=== PATIENT | female | born 1955 | race Caucasian/White ===

== ENCOUNTER 2020-03-12 13:51 | Inpatient (IN) | payer MEDICARE, BC ==
[~2020-03-12] VITALS: Ht 162.6 cm; Wt 52.2 kg
[2020-03-12] MEDS ORDERED: Omnipaque-300 100ml vial INJ PRN (14:00)
[2020-03-12] MEDS ORDERED: Ketorolac 30mg Inj IV ONE (14:00)
--- NOTE | 2020-03-12 14:00 | NUR ---
Pt.came from home with c/o nausea vomiting abdominal pain since monday, VSS, ambulatory, blood was sent to labs, placed on potline monitor and isolation room
[2020-03-12] MEDS ORDERED: Morphine Sulfate 2mg/ml Inj(IV/IM USE ONLY) IVP ONE ×2 (14:15→17:30)
--- NOTE | 2020-03-12 14:20 | NUR ---
ED Nurse Note: x-ray tech at bedside.
--- NOTE | 2020-03-12 14:35 | NUR ---
ED Nurse Note: urine specimen and rapid covid collected, sent to labs.
[2020-03-12 14:36] VITALS: BP 104/69
[2020-03-12 14:38] LABS: HEMATOCRIT 45.2 % (37.0-47.0); HEMOGLOBIN 14.8 G/DL (12.0-16.0); MEAN CORPUSCULAR VOLUME 88 FL (80-99); PLATELET COUNT 377 K/UL (150-450); RED BLOOD COUNT 5.11 M/UL (4.20-5.40); RED CELL DISTRIBUTION WIDTH 12.4 % (11.6-14.8); WHITE BLOOD COUNT 18.4 K/UL (4.8-10.8)
[2020-03-12 14:39] LABS: APPEARANCE,URINE CLEAR; BILIRUBIN, URINE NEGATIVE (NEGATIVE); GLUCOSE, URINE (UA) 2+ (NEGATIVE); KETONES,URINE 2+ (NEGATIVE); LEUKOCYTE ESTERASE ,URINE 1+ (NEGATIVE); NITRITE,URINE NEGATIVE (NEGATIVE); PH,URINE 8 (4.5-8.0); PROTEIN,URINE 1+ (NEGATIVE); UROBILINOGEN,URINE 1 MG/DL (0.0-1.0)
[2020-03-12 14:52] LABS: INR 1.1 (0.9-1.1)
[2020-03-12 14:53] LABS: COLOR,URINE YELLOW
[2020-03-12 14:56] LABS: ANION GAP 12 mmol/L (5-15); BLOOD UREA NITROGEN 18 mg/dL (7-18); CALCIUM 10.1 MG/DL (8.5-10.1); CARBON DIOXIDE 28 MMOL/L (21-32); CHLORIDE 97 MMOL/L (98-107); CREATININE 1.1 MG/DL (0.55-1.30); POTASSIUM 3.4 MMOL/L (3.5-5.1); SODIUM 137 MMOL/L (136-145)
--- NOTE | 2020-03-12 14:57 | Diagnostic Imaging Report ---
Indication: Chest pain Technique: XRAY Chest 1v Comparison:None Findings: Heart is normal in size. Lungs are free of infiltrates. No pleural fluid. Osseous structures are unremarkable. There are some popcorn-like densities in the lucretia and in the aortopulmonary window. Impression: Possible calcified nodes in the pulmonary lucretia and aortopulmonary window. Otherwise
[2020-03-12] MEDS ORDERED: Piperacillin/Tazobactam 3.375 GM in NS 110 ML IVPB ONE (15:00)
--- NOTE | 2020-03-12 15:04 | NUR ---
ED Nurse Note: Patient taken to CT
--- NOTE | 2020-03-12 15:15 | NUR ---
ED Nurse Note: pt returned from CT on stable condition.
[2020-03-12 15:16] LABS: ALANINE AMINOTRANSFERASE 20 U/L (12-78); ALBUMIN 3.9 G/DL (3.4-5.0); ALBUMIN/GLOBULIN RATIO 0.9 (1.0-2.7); ALKALINE PHOSPHATASE 60 U/L (46-116); ASPARTATE AMINO TRANSFERASE 20 U/L (15-37); BILIRUBIN,TOTAL 1.6 MG/DL (0.2-1.0)
[2020-03-12 15:18] LABS: BILIRUBIN,DIRECT 0.2 MG/DL (0.0-0.3)
--- NOTE | 2020-03-12 15:38 | Diagnostic Imaging Report ---
Indication: Reason For Exam: ABD PAIN Technique: CT scan of the abdomen and pelvis was performed from the diaphragms to the symphysis pubis with intravenous contrast material only per specific request of the ordering physician.. 5 mm sections were generated. Axial, coronal, and sagittal images are presented. Dose: Total Dose Length Product - DLP [address] Dose Index - CTDIvol(s) 6.00 mGy. Automated exposure control was utilized for dose reduction. Comparison: None Findings: Liver is unremarkable. The gallbladder is normal. The spleen is unremarkable. Pancreas is normal. There is a small hiatal hernia. Adrenal glands are normal. The kidneys are unremarkable. There is some calcification of the aorta. Retroperitoneum is free of adenopathy. The colon is mostly collapsed making evaluation of the wall the colon difficult. It does appear somewhat indistinct throughout. The appendix is borderline in size but periappendiceal inflammatory changes are not present. There is some stranding in the retroperitoneum posterior to the colon bilaterally. Fluid-filled loops of mid small bowel are noted with some air-fluid levels. A minimal amount of free pelvic fluid is present. The uterus is mildly enlarged. Multiple masses are noted within the uterus. Calcifications are also noted within uterine body. Ovaries are not enlarged. Bladder is collapsed. Degenerative changes are noted in the spine. There is anterolisthesis, grade 1, of L5 on S1. Impression: Some indistinctness of the colonic wall with some retroperitoneal stranding bilaterally posterior to the colon. Possibility of a colitis cannot be excluded and should be correlated clinically. Hiatal hernia. Uterine fibroids. Minimal fluid in the cul-de-sac. Degenerative change in the spine. Anterolisthesis of L5 on S1, grade 1. Fluid-filled loops of mid small bowel with some air-fluid levels, nonspecific. This does not appear obstructive and could represent enteritis. Again, clinical correlation suggested. The CT scanner at [facility] is accredited by the [employer] and the scans are performed using protocols designed to limit radiation exposure to as low as reasonably achievable to attain images of sufficient resolution adequate for diagnostic evaluation.
--- NOTE | 2020-03-12 16:15 | Emergency Room Report ---
History of Present Illness General Chief Complaint: Abdominal Pain Source: Patient (Duglas Meadows) Present Illness HPI 64-year-old female with no signal past medical history other than hiatal hernia here complaining of sudden onset of right lower quadrant abdominal pain rating a 10 out of 10 x 2 days. Patient was brought in by paramedics as patient reported that she felt really lethargic and had multiple bouts of nonbloody emesis. Denies any fever and chills. Also reports that last night she had diarrhea however denies any blood in her stool. Denies chest pain, shortness of breath, headache and dizziness. Has not taken medication for symptom relief. Has not taken medication for pain. Denies any abdominal surgeries in the past. Patient is guarding her right lower quadrant. Is tender to palpation in the same area. (Duglas Meadows) Allergies: Coded Allergies: No Known Allergies (Unverified , 03/12/20) COVID-19 Screening Contact w/high risk pt: No Experienced COVID-19 symptoms?: No COVID-19 Testing performed AUCTION ASSISTANT: No (Duglas Meadows) Patient History Past Medical History: see triage record Past Surgical History: none Pertinent Family History: none Now: No Immunizations: UTD Reviewed Nursing Documentation: PMH: Agreed; PSxH: Agreed (Duglas Meadows) Nursing Documentation-PMH Past Medical History: No History, Except For Hx Asthma: Yes (Duglas Meadows) Review of Systems All Other Systems: negative except mentioned in HPI (Duglas Meadows) Physical Exam Vital Signs Date Time Temp Pulse Resp B/P (MAP) Pulse Ox O2 Delivery O2 Flow Rate FiO2 03/12/20 13:49 98.2 70 16 104/69 (81) 98 Room Air Sp02 EP Interpretation: reviewed, normal General Appearance: alert, GCS 15, non-toxic, moderate distress Head: normocephalic, atraumatic Eyes: bilateral eye normal inspection, bilateral eye PERRL ENT: hearing grossly normal, normal pharynx, no angioedema, normal voice Neck: full range of motion, supple/symm/no masses Respiratory: chest non-tender, lungs clear, normal breath sounds, no rhonchi, no wheezing, speaking full sentences Cardiovascular #1: regular rate, rhythm, no edema, no murmur Gastrointestinal: normal bowel sounds, non-distended, guarding - RLQ, rebound - RLQ, other - Mcburny's positive Rectal: deferred Genitourinary: no CVA tenderness Musculoskeletal: back normal, no calf tenderness Neurologic: alert, motor strength/tone normal, oriented x3, sensory intact, responsive, speech normal Psychiatric: judgement/insight normal, memory normal, mood/affect normal, no suicidal/homicidal ideation Skin: no rash Lymphatic: no adenopathy (Duglas Meadows) Medical Decision Making PA Attestation All diagnoses and treatment plans were reviewed and discussed with my supervising physician Dr. Swan (Duglas Meadows) Diagnostic Impression: Primary Impression: Appendicitis Additional Impressions: Uterine fibroid Colitis ER Course 64-year-old female with no signal past medical history other than hiatal hernia here complaining of sudden onset of right lower quadrant abdominal pain rating a 10 out of 10 x 2 days. Patient was brought in by paramedics as patient reported that she felt really lethargic and had multiple bouts of nonbloody emesis. Denies any fever and chills. Also reports that last night she had diarrhea however denies any blood in her stool. Denies chest pain, shortness of breath, headache and dizziness. Has not taken medication for symptom relief. Has not taken medication for pain. Denies any abdominal surgeries in the past. Patient is guarding her right lower quadrant. Is tender to palpation in the same area. Ddx considered but are not limited to: appendicitis, cholecystis, gastritis, gastroenteritis, UTI, pyelonephritis, SBO, diverticulitis, influenza with GI manifestation, RI, pancreatitis, colitis Vital signs: are WNL, pt. is afebrile H&PE are most consistent with: Borderline appendicitis, colitis, uterine fibroids ORDERS: abdominal CT, abdominal pain set, EKG, chest x-ray ED INTERVENTIONS: NS bolus, Pepcid, morphine, Toradol,, Zofran, Zosyn pt is covid negative Patient was admitted with diagnosis of borderline appendicitis to Dr. Cooper under supervision of Dr.: Sosa Castorena, general surgeon was consulted pt stable at time of admission (Duglas Meadows) ER Course Please see above note. Patient history obtained by me also and evaluated and examined. I agree with assessment and plan. Contacted admitting physician and Dr. Castorena. (Yuri Swan MD) EKG Diagnostic Results Rate: normal Rhythm: NSR ST Segments: no acute changes Other Impression No acute ST changes (Duglas Meadows) Chest X-Ray Diagnostic Results Chest X-Ray Diagnostic Results : Chest X-Ray Ordered: Yes # of Views/Limited/Complete: 1 View Indication: Other EP Interpretation: Yes PA Xray: Interpretation reviewed, by supervising MD, and agrees with findings. Interpretation: no consolidation, no effusion, no pneumothorax Impression: No acute disease Electronically Signed by: Duglas Ryan PA-C (Duglas Meadows) CT/MRI/US Diagnostic Results CT/MRI/US Diagnostic Results : Imaging Test Ordered: CT abdomen pelvis with contrast Impression Borderline size per appendix, colitis, multiple uterine fibroids (Duglas Meadows) Last Vital Signs Date Time Temp Pulse Resp B/P (MAP) Pulse Ox O2 Delivery O2 Flow Rate FiO2 03/12/20 14:36 98.2 16 104/69 98 Room Air 03/12/20 14:36 70 (Duglas Meadows) Status: improved (Yuri Swan MD) Disposition: ADMITTED INPATIENT Condition: Serious Referrals: NOT CHOSEN IPA/,REFERRING (PCP) Duglas Meadows Mar 12, 2020 16:15 Yuri Swan MD Mar 12, 2020 17:06
[2020-03-12] MEDS ORDERED: SYNTHROID25 MCG ORAL (17:02)
--- NOTE | 2020-03-12 17:55 | NUR ---
NURSE NOTES: Report received from Dorothy LYNN, ER admission to 303-2.
[2020-03-12 17:58] VITALS: BP 110/72
--- NOTE | 2020-03-12 18:00 | NUR ---
ED Nurse Note: pt was transferred to med surg unit in stable condition, under the care of dr. stallworth, report was given to ad LYNN, in med surg unit.
--- NOTE | 2020-03-12 18:01 | NUR ---
ED Nurse Note: report given to SHANE Prieto for continuity of care in med surg unit.
--- NOTE | 2020-03-12 18:07 | Consultation ---
History of Present Illness General Date patient seen: Mar 13, 2020 Chief Complaint: Abdominal Pain Present Illness HPI This is a very pleasant 64-year-old female who presented to [facility] with abdominal pain. Patient with history of groin hernia status post repair 2 years ago open at [facility] that began to note generalized abdominal pain approximately 2 to 3 days ago which then began to localize in the pelvic and lower abdomen states both right and left quadrant right more than left. Intermittent nausea and nonbloody emesis. States she is unable to hold much food down. States she is been having intermittent diarrhea and nonbloody diarrhea for the past 2 days. He has had similar symptoms in the past prior. In ED identified to have leukocytosis Harsh thousand and CT as below. Surgery called to evaluate and assist with care. Patient seen, patient evaluated, chart reviewed. currently pain improved. Allergies: Coded Allergies: No Known Allergies (Unverified , 03/12/20) Medication History Scheduled Levothyroxine Sodium* (Synthroid*), 25 MCG ORAL DAILY, (Reported) Patient History History Provided By: Patient, Medical Record, PMD Healthcare decision maker N Resuscitation status Advanced Directive on File Past Medical/Surgical History Past Medical/Surgical History: (1) Colitis (2) Uterine fibroid (3) Appendicitis (4) Hypothyroidism (5) History of asthma Review of Systems Constitutional: Denies: no symptoms, see HPI, chills, sweats, fever, malaise, weakness, other Eye: Denies: no symptoms, see HPI, eye pain, blurred vision, tearing, double vision, nose pain, nose congestion, acuity changes, discharge, other ENT: Denies: no symptoms, see HPI, ear pain, ear discharge, nose pain, nose congestion, throat pain, throat swelling, mouth pain, hearing loss, nasal discharge, other Respiratory: Denies: no symptoms, see HPI, cough, orthopnea, shortness of breath, stridor, wheezing, MCDOWELL, sputum, other Cardiovascular: Denies: no symptoms, see HPI, chest pain, edema, palpitations, syncope, PND, other Gastrointestinal: Reports: abdominal pain, diarrhea, nausea, vomiting Genitourinary: Denies: no symptoms, see HPI, discharge, dysuria, frequency, hematuria, pain, retention, incontinence, urgency, vag bleed/dc, other Musculoskeletal: Denies: no symptoms, see HPI, back pain, gout, joint pain, joint swelling, muscle pain, muscle stiffness, other Skin: Denies: no symptoms, see HPI, rash, change in color, change in hair/nails , dryness, lesions, other Psychiatric: Denies: no symptoms, see HPI, prior hx, anxiety, depressed feelings, emotional problems, SI, HI, hallucinations, other Neurological: Denies: no symptoms, see HPI, headache, numbness, paresthesia, seizure, tingling, tremors, focal weakness, syncope, dizziness, other Endocrine: Denies: no symptoms, see HPI, excessive sweating, flushing, intolerance to temperature, increased thirst, increased urine, unexplained weight loss, other Hematologic/Lymphatic: Denies: no symptoms, see HPI, anemia, blood clots, easy bleeding, easy bruising, swollen glands, diathesis, other Physical Exam General Appearance: WD/WN, no apparent distress, alert Lines, tubes and drains: peripheral HEENT: normocephalic, atraumatic, anicteric, mucous membranes moist Neck: supple, normal inspection Respiratory/Chest: normal breath sounds, no respiratory distress, no accessory muscle use Cardiovascular/Chest: normal peripheral pulses, normal rate, regular rhythm Abdomen: soft, no organomegaly, no mass, hyperactive bowel sounds, tender Extremities: normal inspection, no calf tenderness, normal capillary refill Skin Exam: warm/dry Neurologic: alert, oriented x 3, responsive Last 24 Hour Vital Signs Date Time Temp Pulse Resp B/P (MAP) Pulse Ox O2 Delivery O2 Flow Rate FiO2 03/12/20 17:58 98.2 59 20 110/72 100 Room Air 03/12/20 14:46 98.2 03/12/20 14:46 98.2 03/12/20 14:45 98.2 03/12/20 14:36 98.2 16 104/69 98 Room Air 03/12/20 14:36 70 16 Room Air 03/12/20 13:49 98.2 70 16 104/69 (81) 98 Room Air Laboratory Tests Test 03/12/20 13:30 03/12/20 14:30 White Blood Count 18.4 K/UL (4.8-10.8) H Red Blood Count 5.11 M/UL (4.20-5.40) Hemoglobin 14.8 G/DL (12.0-16.0) Hematocrit 45.2 % (37.0-47.0) Mean Corpuscular Volume 88 FL (80-99) Mean Corpuscular Hemoglobin 29.0 PG (27.0-31.0) Mean Corpuscular Hemoglobin Concent 32.8 G/DL (32.0-36.0) Red Cell Distribution Width 12.4 % (11.6-14.8) Platelet Count 377 K/UL (150-450) Mean Platelet Volume 5.9 FL (6.5-10.1) L Neutrophils (%) (Auto) % (45.0-75.0) Lymphocytes (%) (Auto) % (20.0-45.0) Monocytes (%) (Auto) % (1.0-10.0) Eosinophils (%) (Auto) % (0.0-3.0) Basophils (%) (Auto) % (0.0-2.0) Differential Total Cells Counted 100 Neutrophils % (Manual) 90 % (45-75) H Lymphocytes % (Manual) 5 % (20-45) L Monocytes % (Manual) 5 % (1-10) Eosinophils % (Manual) 0 % (0-3) Basophils % (Manual) 0 % (0-2) Band Neutrophils 0 % (0-8) Platelet Estimate Adequate Platelet Morphology Normal Red Blood Cell Morphology Normal Prothrombin Time 12.0 SEC (9.30-11.50) H Prothromb Time International Ratio 1.1 (0.9-1.1) Activated Partial Thromboplast Time 32 SEC (23-33) Sodium Level 137 MMOL/L (136-145) Potassium Level 3.4 MMOL/L (3.5-5.1) L Chloride Level 97 MMOL/L (98-107) L Carbon Dioxide Level 28 MMOL/L (21-32) Anion Gap 12 mmol/L (5-15) Blood Urea Nitrogen 18 mg/dL (7-18) Creatinine 1.1 MG/DL (0.55-1.30) Estimat Glomerular Filtration Rate 49.9 mL/min (>60) Glucose Level 135 MG/DL (74-106) H Calcium Level 10.1 MG/DL (8.5-10.1) Total Bilirubin 1.6 MG/DL (0.2-1.0) H Direct Bilirubin 0.2 MG/DL (0.0-0.3) Aspartate Amino Transf (AST/SGOT) 20 U/L (15-37) Alanine Aminotransferase (ALT/SGPT) 20 U/L (12-78) Alkaline Phosphatase 60 U/L (46-116) Troponin I 0.000 ng/mL (0.000-0.056) Pro-B-Type Natriuretic Peptide 1608 pg/mL (0-125) H Total Protein 8.4 G/DL (6.4-8.2) H Albumin 3.9 G/DL (3.4-5.0) Globulin 4.5 g/dL Albumin/Globulin Ratio 0.9 (1.0-2.7) L Lipase 64 U/L (73-393) L Serum Alcohol < 3 mg/dL Urine Color Yellow Urine Appearance Clear Urine pH 8 (4.5-8.0) Urine Specific [place] 1.010 (1.005-1.035) Urine Protein 1+ (NEGATIVE) H Urine Glucose (UA) 2+ (NEGATIVE) H Urine Ketones 2+ (NEGATIVE) H Urine Blood 3+ (NEGATIVE) H Urine Nitrite Negative (NEGATIVE) Urine Bilirubin Negative (NEGATIVE) Urine Urobilinogen 1 MG/DL (0.0-1.0) H Urine Leukocyte Esterase 1+ (NEGATIVE) H Urine RBC 2-4 /HPF (0 - 2) H Urine WBC 2-4 /HPF (0 - 2) Urine Squamous Epithelial Cells Few /LPF (NONE/OCC) Urine Bacteria Few /HPF (NONE) Urine Opiates Screen Negative (NEGATIVE) Urine Barbiturates Screen Negative (NEGATIVE) Phencyclidine (PCP) Screen Negative (NEGATIVE) Urine Amphetamines Screen Negative (NEGATIVE) Urine Benzodiazepines Screen Negative (NEGATIVE) Urine Cocaine Screen Negative (NEGATIVE) Urine Marijuana (THC) Screen Positive (NEGATIVE) H Microbiology Date/Time Source Procedure Growth Status 03/12/20 14:24 Nasopharynx SARS-CoV-2 RdRp Gene Assay - Final Complete Height (Feet): 5 Height (Inches): 4.00 Weight (Pounds): 115 Medications Current Medications Medications (Trade) Dose Ordered Sig/Candie Route PRN Reason Start Time Stop Time Status Last Admin Dose Admin Iohexol (OMNIPAQUE-300 100ml) 100 ml NOW PRN INJ Radiology Procedure 03/12/20 14:00 03/14/20 13:56 Assessment/Plan Problem List: (1) Colitis Assessment & Plan: 64-year-old female with 2 days abdominal pain nausea vomiting diarrhea. CT noted. Appendix identified without any inflammation. Does have colitis. On examination right lower quadrant pelvic and left lower quadrant all tender with right a little bit more pronounced. Likely diagnosis colitis potential appendicitis Okay for clear liquid diet trial Pain control Antibiotics We will follow serial abdominal examinations and recommendations thank you for let me participate in patient's care ICD Codes: K52.9 - Noninfective gastroenteritis and colitis, unspecified SNOMED: 77710720 (2) Uterine fibroid ICD Codes: D25.9 - Leiomyoma of uterus, unspecified SNOMED: 45942262 (3) Appendicitis Assessment & Plan: Liver is unremarkable. The gallbladder is normal. The spleen is unremarkable. Pancreas is normal. There is a small hiatal hernia. Adrenal glands are normal. The kidneys are unremarkable. There is some calcification of the aorta. Retroperitoneum is free of adenopathy. The colon is mostly collapsed making evaluation of the wall the colon difficult. It does appear somewhat indistinct throughout. The appendix is borderline in size but periappendiceal inflammatory changes are not present. There is some stranding in the retroperitoneum posterior to the colon bilaterally. Fluid-filled loops of mid small bowel are noted with some air-fluid levels. A minimal amount of free pelvic fluid is present. The uterus is mildly enlarged. Multiple masses are noted within the uterus. Calcifications are also noted within uterine body. Ovaries are not enlarged. Bladder is collapsed. Degenerative changes are noted in the spine. There is anterolisthesis, grade 1, of L5 on S1. ICD Codes: K37 - Unspecified appendicitis SNOMED: 44030456 Leoncio Castorena Mar 12, 2020 18:07
[2020-03-12 18:15] VITALS: BP 136/74
[2020-03-12] MEDS ORDERED: Mylanta II UD 30ml ORAL PRN (18:15)
[2020-03-12] MEDS ORDERED: Morphine Sulfate 4mg/ml Inj (IV USE ONLY) IVP PRN (18:15)
[2020-03-12] MEDS ORDERED: Morphine Sulfate 2mg/ml Inj(IV/IM USE ONLY) IVP PRN (18:15)
[2020-03-12] MEDS ORDERED: Milk of Magnesia 30ml Ud ORAL PRN (18:15)
[2020-03-12] MEDS ORDERED: LORazepam 1mg tab ORAL PRN (18:15)
--- NOTE | 2020-03-12 18:15 | NUR ---
NURSE NOTES: Patient arrived to 303-2 via gurney on RA, in stable condition at 1815. Patient AOx4 calm, no distress noted. Respirations even/unlabored. Belongings reviewed with patient and research laboratory technician, patient wants to keep hernandez ($182) at bedside in her purse. VSS. No NV at this time. Patient reports pain 8/10, while pressing on her abdomen. ROLANDA, IVF infusing (NS to gravity, will call for pump). Noted generalized scabs to BUE/BLE and back due to past itching, denies itchiness at this time. Oriented patient to room and call light. Bed in lowest position, call light in reach, will continue to monitor.
--- NOTE | 2020-03-12 18:40 | NUR ---
NURSE NOTES: Above ROLANDA IV site, looks swollen and slightly pink. IV flushed, no pain or resistance, however, IV clamped/stopped. Will need restart, will endorse to next shift.
[2020-03-12] MEDS ORDERED: Nitroglycerin Subl 0.4mg tab SL PRN (18:45)
[2020-03-12] MEDS ORDERED: Miralax 17gm pkt ORAL PRN (18:45)
--- NOTE | 2020-03-12 19:42 | NUR ---
HAND-OFF: Report given to Chhaya LYNN, rounds made, patient stable. Addendum: 03/12/20 at 2001 by Desire Marina RN Endorsed IV needs restart.
--- NOTE | 2020-03-12 19:43 | NUR ---
NURSE NOTES: Received report & pt from SHANE Phipps. Pt laying in bed, a&ox4, in room air. No s/s of acute distress & no c/o pain at this time. Pt is NPO & pt aware. IV site intact with IVF running as ordered. Plan of care discussed.
[2020-03-12 20:00] VITALS: BP 109/60
[2020-03-12] MEDS: Heparin 5000 units/ml inj SUBQ SCH (20:35)
[2020-03-13] VITALS: BP 104/58
[2020-03-13 04:00] VITALS: BP 102/61
[2020-03-13] MEDS: Morphine Sulfate 2mg/ml Inj(IV/IM USE ONLY) IVP PRN (05:25)
[2020-03-13 06:17] LABS: BASOPHILS % (AUTO) 0.7 % (0.0-2.0); EOSINOPHILS % (AUTO) 0.2 % (0.0-3.0); HEMATOCRIT 40.4 % (37.0-47.0); HEMOGLOBIN 12.9 G/DL (12.0-16.0); LYMPHOCYTES % (AUTO) 8.7 % (20.0-45.0); MEAN CORPUSCULAR VOLUME 92 FL (80-99); MONOCYTES % (AUTO) 7.4 % (1.0-10.0); PLATELET COUNT 286 K/UL (150-450); RED BLOOD COUNT 4.41 M/UL (4.20-5.40); RED CELL DISTRIBUTION WIDTH 13.2 % (11.6-14.8); WHITE BLOOD COUNT 12.5 K/UL (4.8-10.8)
[2020-03-13 06:39] LABS: INR 1.1 (0.9-1.1)
[2020-03-13 06:43] LABS: ALANINE AMINOTRANSFERASE 16 U/L (12-78); ALBUMIN 3.1 G/DL (3.4-5.0); ALBUMIN/GLOBULIN RATIO 0.8 (1.0-2.7); ALKALINE PHOSPHATASE 56 U/L (46-116); ANION GAP 7 mmol/L (5-15); ASPARTATE AMINO TRANSFERASE 17 U/L (15-37); BLOOD UREA NITROGEN 17 mg/dL (7-18); CALCIUM 9.5 MG/DL (8.5-10.1); CARBON DIOXIDE 28 MMOL/L (21-32); CHLORIDE 103 MMOL/L (98-107); POTASSIUM 3.4 MMOL/L (3.5-5.1); SODIUM 138 MMOL/L (136-145)
--- NOTE | 2020-03-13 06:48 | NUR ---
NURSE NOTES: Left msg to Dr. Cooper re: K level 3.4; Awaiting order. Will endorse to AM shift.
[2020-03-13 07:01] LABS: AMYLASE 38 U/L (25-115)
--- NOTE | 2020-03-13 07:10 | NUR ---
NURSE HAND-OFF: Important Events on Shift: Emesis 100ml clear, greenish Patient Status: stable but still a little nauseous; PRN meds given Diet: NPO Pending Orders: None Pending Results/Labs:None Pending MD notification: K 3.4; Informed Dr. Cooper. Endorsed to AM shift to f/u with MD for K replacement Latest Vital Signs: Temperature 98.9 , Pulse 72 , B/P 102 /61 , Respiratory Rate 16 , O2 SAT 97 , Room Air, O2 Flow Rate . Vital Sign Comment: none Latest Delarosa Fall Score: 35 Fall Risk: Medium Risk Safety Measures: Call light Within Reach, Bed Alarm , Side Rails Side Rails x2, Bed position Low and Locked. Fall Precautions: Yellow Socks Patient Fall Education Report given to SHANE Flores.
--- NOTE | 2020-03-13 07:32 | NUR ---
NURSE NOTES: Received report from SHANE Shaver. Patient awake, alert and oriented x 4, verbal and able to make needs known, no SOB, IV line on ROLANDA patent and intact, bed in lowest position with alarm on and breaks engaged, denies any pain at this time, on room air, will continue to monitor and proceed with plan of care, call light within reach.
[2020-03-13] MEDS: Metoclopramide 10mg/2ml Inj IVP PRN ×2 (07:49→20:19)
[2020-03-13 08:00] VITALS: BP 128/66
[2020-03-13] MEDS: Heparin 5000 units/ml inj SUBQ SCH ×2 (08:58→20:19)
[2020-03-13] MEDS ORDERED: Pantoprazole Inj IV SCH (09:00)
[2020-03-13 12:00] VITALS: BP 131/66
--- NOTE | 2020-03-13 13:31 | Consultation ---
History of Present Illness General Chief Complaint: Abdominal Pain Present Illness Allergies: Coded Allergies: No Known Allergies (Unverified , 03/12/20) Medication History Scheduled Levothyroxine Sodium* (Synthroid*), 25 MCG ORAL DAILY, (Reported) Patient History Healthcare decision maker N Resuscitation status Advanced Directive on File Past Medical/Surgical History Past Medical/Surgical History: (1) History of asthma (2) Hypothyroidism (3) Uterine fibroid Review of Systems All Other Systems: negative except mentioned in HPI Physical Exam General Appearance: thin Lines, tubes and drains: peripheral HEENT: normocephalic, atraumatic, anicteric, mucous membranes moist Neck: supple, normal inspection Respiratory/Chest: chest wall non-tender, lungs clear, normal breath sounds, no respiratory distress, no accessory muscle use Cardiovascular/Chest: normal peripheral pulses, normal rate, regular rhythm Abdomen: normal bowel sounds, non tender, soft, no mass Genitourinary/Rectal: normal genital exam Extremities: normal range of motion Skin Exam: normal pigmentation Last 24 Hour Vital Signs Date Time Temp Pulse Resp B/P (MAP) Pulse Ox O2 Delivery O2 Flow Rate FiO2 03/13/20 12:00 99.2 69 18 131/66 (87) 98 03/13/20 09:00 Room Air 03/13/20 08:00 99.5 83 18 128/66 (86) 98 03/13/20 04:00 98.9 72 16 102/61 (75) 97 03/13/20 00:00 98.8 62 18 104/58 (73) 100 03/12/20 23:02 Room Air 03/12/20 20:00 98.9 65 18 109/60 (76) 97 03/12/20 18:15 99.2 60 18 136/74 (94) 98 03/12/20 18:00 98.2 61 21 110/72 100 Room Air 03/12/20 17:58 98.2 59 20 110/72 100 Room Air 03/12/20 14:46 98.2 03/12/20 14:46 98.2 03/12/20 14:45 98.2 03/12/20 14:36 98.2 16 104/69 98 Room Air 03/12/20 14:36 70 16 Room Air 03/12/20 13:49 98.2 70 16 104/69 (81) 98 Room Air Intake and Output 8/6/20 8/7/20 19:00 07:00 Intake Total 900 ml Output Total 100 ml Balance 800 ml Intake IV Total 900 ml Output Emesis 100 ml # Voids 2 Laboratory Tests Test 03/12/20 13:30 03/12/20 14:30 03/13/20 05:10 White Blood Count 18.4 K/UL (4.8-10.8) H 12.5 K/UL (4.8-10.8) H Red Blood Count 5.11 M/UL (4.20-5.40) 4.41 M/UL (4.20-5.40) Hemoglobin 14.8 G/DL (12.0-16.0) 12.9 G/DL (12.0-16.0) Hematocrit 45.2 % (37.0-47.0) 40.4 % (37.0-47.0) Mean Corpuscular Volume 88 FL (80-99) 92 FL (80-99) Mean Corpuscular Hemoglobin 29.0 PG (27.0-31.0) 29.3 PG (27.0-31.0) Mean Corpuscular Hemoglobin Concent 32.8 G/DL (32.0-36.0) 31.9 G/DL (32.0-36.0) L Red Cell Distribution Width 12.4 % (11.6-14.8) 13.2 % (11.6-14.8) Platelet Count 377 K/UL (150-450) 286 K/UL (150-450) Mean Platelet Volume 5.9 FL (6.5-10.1) L 5.6 FL (6.5-10.1) L Neutrophils (%) (Auto) % (45.0-75.0) 83.0 % (45.0-75.0) H Lymphocytes (%) (Auto) % (20.0-45.0) 8.7 % (20.0-45.0) L Monocytes (%) (Auto) % (1.0-10.0) 7.4 % (1.0-10.0) Eosinophils (%) (Auto) % (0.0-3.0) 0.2 % (0.0-3.0) Basophils (%) (Auto) % (0.0-2.0) 0.7 % (0.0-2.0) Differential Total Cells Counted 100 Neutrophils % (Manual) 90 % (45-75) H Lymphocytes % (Manual) 5 % (20-45) L Monocytes % (Manual) 5 % (1-10) Eosinophils % (Manual) 0 % (0-3) Basophils % (Manual) 0 % (0-2) Band Neutrophils 0 % (0-8) Platelet Estimate Adequate Platelet Morphology Normal Red Blood Cell Morphology Normal Prothrombin Time 12.0 SEC (9.30-11.50) H 12.3 SEC (9.30-11.50) H Prothromb Time International Ratio 1.1 (0.9-1.1) 1.1 (0.9-1.1) Activated Partial Thromboplast Time 32 SEC (23-33) 33 SEC (23-33) Sodium Level 137 MMOL/L (136-145) 138 MMOL/L (136-145) Potassium Level 3.4 MMOL/L (3.5-5.1) L 3.4 MMOL/L (3.5-5.1) L Chloride Level 97 MMOL/L (98-107) L 103 MMOL/L (98-107) Carbon Dioxide Level 28 MMOL/L (21-32) 28 MMOL/L (21-32) Anion Gap 12 mmol/L (5-15) 7 mmol/L (5-15) Blood Urea Nitrogen 18 mg/dL (7-18) 17 mg/dL (7-18) Creatinine 1.1 MG/DL (0.55-1.30) 1.0 MG/DL (0.55-1.30) Estimat Glomerular Filtration Rate 49.9 mL/min (>60) 55.7 mL/min (>60) Glucose Level 135 MG/DL (74-106) H 79 MG/DL (74-106) Calcium Level 10.1 MG/DL (8.5-10.1) 9.5 MG/DL (8.5-10.1) Total Bilirubin 1.6 MG/DL (0.2-1.0) H 1.0 MG/DL (0.2-1.0) Direct Bilirubin 0.2 MG/DL (0.0-0.3) Aspartate Amino Transf (AST/SGOT) 20 U/L (15-37) 17 U/L (15-37) Alanine Aminotransferase (ALT/SGPT) 20 U/L (12-78) 16 U/L (12-78) Alkaline Phosphatase 60 U/L (46-116) 56 U/L (46-116) Troponin I 0.000 ng/mL (0.000-0.056) Pro-B-Type Natriuretic Peptide 1608 pg/mL (0-125) H Total Protein 8.4 G/DL (6.4-8.2) H 7.1 G/DL (6.4-8.2) Albumin 3.9 G/DL (3.4-5.0) 3.1 G/DL (3.4-5.0) L Globulin 4.5 g/dL 4.0 g/dL Albumin/Globulin Ratio 0.9 (1.0-2.7) L 0.8 (1.0-2.7) L Lipase 64 U/L (73-393) L 85 U/L (73-393) Serum Alcohol < 3 mg/dL Urine Color Yellow Urine Appearance Clear Urine pH 8 (4.5-8.0) Urine Specific [place] 1.010 (1.005-1.035) Urine Protein 1+ (NEGATIVE) H Urine Glucose (UA) 2+ (NEGATIVE) H Urine Ketones 2+ (NEGATIVE) H Urine Blood 3+ (NEGATIVE) H Urine Nitrite Negative (NEGATIVE) Urine Bilirubin Negative (NEGATIVE) Urine Urobilinogen 1 MG/DL (0.0-1.0) H Urine Leukocyte Esterase 1+ (NEGATIVE) H Urine RBC 2-4 /HPF (0 - 2) H Urine WBC 2-4 /HPF (0 - 2) Urine Squamous Epithelial Cells Few /LPF (NONE/OCC) Urine Bacteria Few /HPF (NONE) Urine Opiates Screen Negative (NEGATIVE) Urine Barbiturates Screen Negative (NEGATIVE) Phencyclidine (PCP) Screen Negative (NEGATIVE) Urine Amphetamines Screen Negative (NEGATIVE) Urine Benzodiazepines Screen Negative (NEGATIVE) Urine Cocaine Screen Negative (NEGATIVE) Urine Marijuana (THC) Screen Positive (NEGATIVE) H Amylase Level 38 U/L (25-115) Microbiology Date/Time Source Procedure Growth Status 03/12/20 14:24 Nasopharynx SARS-CoV-2 RdRp Gene Assay - Final Complete Height (Feet): 5 Height (Inches): 4.00 Weight (Pounds): 115 Medications Current Medications Medications (Trade) Dose Ordered Sig/Candie Route PRN Reason Start Time Stop Time Status Last Admin Dose Admin Acetaminophen (Tylenol) 650 mg Q4H PRN ORAL Temp >100.5 03/12/20 18:15 04/11/20 18:14 Al Hydroxide/Mg Hydroxide (Mylanta II) 30 ml Q6H PRN ORAL dyspepsia 03/12/20 18:15 04/11/20 18:14 Dextrose (Dextrose 50%) 25 ml Q30M PRN IV Hypoglycemia 03/12/20 18:15 06/10/20 18:14 Dextrose (Dextrose 50%) 50 ml Q30M PRN IV Hypoglycemia 03/12/20 18:15 06/10/20 18:14 Diphenhydramine HCl (Benadryl) 25 mg Q6H PRN ORAL Itching/Pruritis 03/12/20 18:15 04/11/20 18:14 Famotidine (Pepcid I.v.) 20 mg Q12HR IVP 03/12/20 21:00 04/11/20 20:59 03/13/20 08:55 Heparin Sodium (Porcine) (Heparin 5000 units/ml) 5,000 units EVERY 12 HOURS SUBQ 03/12/20 21:00 04/26/20 20:59 03/13/20 08:58 Iohexol (OMNIPAQUE-300 100ml) 100 ml NOW PRN INJ Radiology Procedure 03/12/20 14:00 03/14/20 13:56 Lorazepam (Ativan) 1 mg Q4H PRN ORAL For Anxiety 03/12/20 18:15 03/19/20 18:14 Magnesium Hydroxide (Mom) 30 ml HSPRN PRN ORAL Constipation 03/12/20 18:15 04/11/20 18:14 Metoclopramide HCl (Reglan) 10 mg Q6H PRN IVP severe nausea 03/12/20 18:45 04/11/20 18:44 03/13/20 07:49 Morphine Sulfate (Morphine Sulfate) 1 mg Q3H PRN IVP Mild Pain (Pain Scale 1-3) 03/12/20 18:15 03/19/20 18:14 Morphine Sulfate (Morphine Sulfate) 2 mg Q4H PRN IVP Moderate Pain (Pain Scale 4-6) 03/12/20 18:15 03/19/20 18:14 03/13/20 05:25 Morphine Sulfate (Morphine Sulfate) 4 mg Q3H PRN IVP Severe Pain (Pain Scale 7-10) 03/12/20 18:15 03/19/20 18:14 Nitroglycerin (Ntg) 0.4 mg Q5M X 3 DOSES PRN SL Prn Chest Pain 03/12/20 18:45 04/11/20 18:44 Ondansetron HCl (Zofran) 4 mg Q6H PRN IVP Nausea & Vomiting 03/12/20 18:15 04/11/20 18:14 03/13/20 05:25 Piperacillin Sod/ Tazobactam Sod 3.375 gm/Sodium Chloride 110 ml @ 27.5 mls/hr EVERY 8 HOURS IVPB 03/13/20 14:00 03/18/20 13:59 Polyethylene Glycol (Miralax) 17 gm HSPRN PRN ORAL Constipation 03/12/20 18:45 04/11/20 18:44 Sodium Chloride 1,000 ml @ 100 mls/hr Q10H IVLG 03/12/20 19:03 04/11/20 19:02 03/13/20 05:23 Temazepam (Restoril) 15 mg HSPRN PRN ORAL Insomnia 03/12/20 18:15 03/19/20 18:14 Assessment/Plan Problem List: (1) Colitis ICD Codes: K52.9 - Noninfective gastroenteritis and colitis, unspecified SNOMED: 45058532 (2) History of asthma ICD Codes: Z87.09 - Personal history of other diseases of the respiratory system SNOMED: 465232630 (3) Hypothyroidism ICD Codes: E03.9 - Hypothyroidism, unspecified SNOMED: 16485795 Assessment/Plan: NPO iv abx check cultures GI and surgery evaluation continue home meds dvt prophylaxis Jihan Hall MD Mar 13, 2020 13:31
--- NOTE | 2020-03-13 13:34 | NUR ---
Case management note: CM spoke to Dr Cooper Patient meets Observation status If patient needs surgery patient will be upgraded to inpatient status
[2020-03-13] MEDS ORDERED: Piperacillin/Tazobactam 3.375 GM in NS 110 ML IVPB SCH (14:00)
--- NOTE | 2020-03-13 14:08 | Consultation ---
History of Present Illness General Date patient seen: Mar 13, 2020 Chief Complaint: Abdominal Pain Present Illness HPI 64 y/o F with hx of Asthma, groin hernia s/p repair 2yrs ago presented to ED on 03/12 with 2-3 days of generalized abd pain, intermittent nausea and nonblood emesis. Pain initially began on pelvic and lower abd (R> L quadrant). Unable to hold down much food. +intermittent diarrhea (non bloody ) for the past 2 years. Denied fever, chills, chest pain, SOB, headache. Allergies: Coded Allergies: No Known Allergies (Unverified , 03/12/20) Medication History Scheduled Levothyroxine Sodium* (Synthroid*), 25 MCG ORAL DAILY, (Reported) Patient History Healthcare decision maker N Resuscitation status Advanced Directive on File Patient History Narrative Pmhx: as above Shx: reviewed Fhx: non contributory Review of Systems All Other Systems: negative except mentioned in HPI Physical Exam Physical Exam Narrative General Appearance: thin Lines, tubes and drains: peripheral HEENT: normocephalic, atraumatic, anicteric, mucous membranes moist Neck: supple, normal inspection Respiratory/Chest: chest wall non-tender, lungs clear, normal breath sounds, no respiratory distress, no accessory muscle use Cardiovascular/Chest: normal peripheral pulses, normal rate, regular rhythm Abdomen: normal bowel sounds, non tender, soft, no mass Extremities: normal range of motion Skin Exam: normal pigmentation Last 24 Hour Vital Signs Date Time Temp Pulse Resp B/P (MAP) Pulse Ox O2 Delivery O2 Flow Rate FiO2 03/13/20 12:00 99.2 69 18 131/66 (87) 98 03/13/20 09:00 Room Air 03/13/20 08:00 99.5 83 18 128/66 (86) 98 03/13/20 04:00 98.9 72 16 102/61 (75) 97 03/13/20 00:00 98.8 62 18 104/58 (73) 100 03/12/20 23:02 Room Air 03/12/20 20:00 98.9 65 18 109/60 (76) 97 03/12/20 18:15 99.2 60 18 136/74 (94) 98 03/12/20 18:00 98.2 61 21 110/72 100 Room Air 03/12/20 17:58 98.2 59 20 110/72 100 Room Air 03/12/20 14:46 98.2 03/12/20 14:46 98.2 03/12/20 14:45 98.2 03/12/20 14:36 98.2 16 104/69 98 Room Air 03/12/20 14:36 70 16 Room Air Intake and Output 03/12/20 03/13/20 19:00 07:00 Intake Total 900 ml Output Total 100 ml Balance 800 ml Intake IV Total 900 ml Output Emesis 100 ml # Voids 2 Laboratory Tests Test 03/12/20 14:30 03/13/20 05:10 Urine Color Yellow Urine Appearance Clear Urine pH 8 (4.5-8.0) Urine Specific [place] 1.010 (1.005-1.035) Urine Protein 1+ (NEGATIVE) H Urine Glucose (UA) 2+ (NEGATIVE) H Urine Ketones 2+ (NEGATIVE) H Urine Blood 3+ (NEGATIVE) H Urine Nitrite Negative (NEGATIVE) Urine Bilirubin Negative (NEGATIVE) Urine Urobilinogen 1 MG/DL (0.0-1.0) H Urine Leukocyte Esterase 1+ (NEGATIVE) H Urine RBC 2-4 /HPF (0 - 2) H Urine WBC 2-4 /HPF (0 - 2) Urine Squamous Epithelial Cells Few /LPF (NONE/OCC) Urine Bacteria Few /HPF (NONE) Urine Opiates Screen Negative (NEGATIVE) Urine Barbiturates Screen Negative (NEGATIVE) Phencyclidine (PCP) Screen Negative (NEGATIVE) Urine Amphetamines Screen Negative (NEGATIVE) Urine Benzodiazepines Screen Negative (NEGATIVE) Urine Cocaine Screen Negative (NEGATIVE) Urine Marijuana (THC) Screen Positive (NEGATIVE) H White Blood Count 12.5 K/UL (4.8-10.8) H Red Blood Count 4.41 M/UL (4.20-5.40) Hemoglobin 12.9 G/DL (12.0-16.0) Hematocrit 40.4 % (37.0-47.0) Mean Corpuscular Volume 92 FL (80-99) Mean Corpuscular Hemoglobin 29.3 PG (27.0-31.0) Mean Corpuscular Hemoglobin Concent 31.9 G/DL (32.0-36.0) L Red Cell Distribution Width 13.2 % (11.6-14.8) Platelet Count 286 K/UL (150-450) Mean Platelet Volume 5.6 FL (6.5-10.1) L Neutrophils (%) (Auto) 83.0 % (45.0-75.0) H Lymphocytes (%) (Auto) 8.7 % (20.0-45.0) L Monocytes (%) (Auto) 7.4 % (1.0-10.0) Eosinophils (%) (Auto) 0.2 % (0.0-3.0) Basophils (%) (Auto) 0.7 % (0.0-2.0) Prothrombin Time 12.3 SEC (9.30-11.50) H Prothromb Time International Ratio 1.1 (0.9-1.1) Activated Partial Thromboplast Time 33 SEC (23-33) Sodium Level 138 MMOL/L (136-145) Potassium Level 3.4 MMOL/L (3.5-5.1) L Chloride Level 103 MMOL/L (98-107) Carbon Dioxide Level 28 MMOL/L (21-32) Anion Gap 7 mmol/L (5-15) Blood Urea Nitrogen 17 mg/dL (7-18) Creatinine 1.0 MG/DL (0.55-1.30) Estimat Glomerular Filtration Rate 55.7 mL/min (>60) Glucose Level 79 MG/DL (74-106) Calcium Level 9.5 MG/DL (8.5-10.1) Total Bilirubin 1.0 MG/DL (0.2-1.0) Aspartate Amino Transf (AST/SGOT) 17 U/L (15-37) Alanine Aminotransferase (ALT/SGPT) 16 U/L (12-78) Alkaline Phosphatase 56 U/L (46-116) Total Protein 7.1 G/DL (6.4-8.2) Albumin 3.1 G/DL (3.4-5.0) L Globulin 4.0 g/dL Albumin/Globulin Ratio 0.8 (1.0-2.7) L Amylase Level 38 U/L (25-115) Lipase 85 U/L (73-393) Microbiology Date/Time Source Procedure Growth Status 03/12/20 14:24 Nasopharynx SARS-CoV-2 RdRp Gene Assay - Final Complete Height (Feet): 5 Height (Inches): 4.00 Weight (Pounds): 115 Medications Current Medications Medications (Trade) Dose Ordered Sig/Candie Route PRN Reason Start Time Stop Time Status Last Admin Dose Admin Acetaminophen (Tylenol) 650 mg Q4H PRN ORAL Temp >100.5 03/12/20 18:15 04/11/20 18:14 Al Hydroxide/Mg Hydroxide (Mylanta II) 30 ml Q6H PRN ORAL dyspepsia 03/12/20 18:15 04/11/20 18:14 Dextrose (Dextrose 50%) 25 ml Q30M PRN IV Hypoglycemia 03/12/20 18:15 06/10/20 18:14 Dextrose (Dextrose 50%) 50 ml Q30M PRN IV Hypoglycemia 03/12/20 18:15 06/10/20 18:14 Diphenhydramine HCl (Benadryl) 25 mg Q6H PRN ORAL Itching/Pruritis 03/12/20 18:15 04/11/20 18:14 Famotidine (Pepcid I.v.) 20 mg Q12HR IVP 03/12/20 21:00 04/11/20 20:59 03/13/20 08:55 Heparin Sodium (Porcine) (Heparin 5000 units/ml) 5,000 units EVERY 12 HOURS SUBQ 03/12/20 21:00 04/26/20 20:59 03/13/20 08:58 Iohexol (OMNIPAQUE-300 100ml) 100 ml NOW PRN INJ Radiology Procedure 03/12/20 14:00 03/14/20 13:56 Lorazepam (Ativan) 1 mg Q4H PRN ORAL For Anxiety 03/12/20 18:15 03/19/20 18:14 Magnesium Hydroxide (Mom) 30 ml HSPRN PRN ORAL Constipation 03/12/20 18:15 04/11/20 18:14 Metoclopramide HCl (Reglan) 10 mg Q6H PRN IVP severe nausea 03/12/20 18:45 04/11/20 18:44 03/13/20 07:49 Morphine Sulfate (Morphine Sulfate) 1 mg Q3H PRN IVP Mild Pain (Pain Scale 1-3) 03/12/20 18:15 03/19/20 18:14 Morphine Sulfate (Morphine Sulfate) 2 mg Q4H PRN IVP Moderate Pain (Pain Scale 4-6) 03/12/20 18:15 03/19/20 18:14 03/13/20 05:25 Morphine Sulfate (Morphine Sulfate) 4 mg Q3H PRN IVP Severe Pain (Pain Scale 7-10) 03/12/20 18:15 03/19/20 18:14 Nitroglycerin (Ntg) 0.4 mg Q5M X 3 DOSES PRN SL Prn Chest Pain 03/12/20 18:45 04/11/20 18:44 Ondansetron HCl (Zofran) 4 mg Q6H PRN IVP Nausea & Vomiting 03/12/20 18:15 04/11/20 18:14 03/13/20 05:25 Piperacillin Sod/ Tazobactam Sod 3.375 gm/Sodium Chloride 110 ml @ 27.5 mls/hr EVERY 8 HOURS IVPB 03/13/20 14:00 03/18/20 13:59 Polyethylene Glycol (Miralax) 17 gm HSPRN PRN ORAL Constipation 03/12/20 18:45 04/11/20 18:44 Sodium Chloride 1,000 ml @ 100 mls/hr Q10H IVLG 03/12/20 19:03 04/11/20 19:02 03/13/20 05:23 Temazepam (Restoril) 15 mg HSPRN PRN ORAL Insomnia 03/12/20 18:15 03/19/20 18:14 Assessment/Plan Assessment/Plan: Abx: Zosyn 03/12- Assessment: COVID 19 neg x1 (03/12 rapid COVID PCR) Afebrile Leukocytosis, improving -u/a neg -CXR: Possible calcified nodes in the pulmonary lucretia and aortopulmonary window. Abdominal pain- enterocolitis- r/o infectious ?appendicitis -CT abd/p: Some indistinctness of the colonic wall with some retroperitoneal stranding bilaterally posterior to the colon. Possibility of a colitis cannot be excluded and should be correlated clinically. Hiatal hernia. Uterine fibroids. Minimal fluid in the cul-de-sac. Degenerative change in the spine. Anterolisthesis of L5 on S1, grade 1. Fluid-filled loops of mid small bowel with some air-fluid levels, nonspecific. This does not appear obstructive and could represent enteritis. UDS+ THC Asthma groin hernia s/p repair 2yrs ago Plan: -Switch empiric Zosyn #2 to Ceftriaxone and Flagyl -f/u cx -Monitor CBC/CMP, temperatures -stool cx, Cdiff, ova +p -HIV ab screen and VL -COVID19 isolation and testing; send 2nd COVID PCR Thank you for this consultation. Will continue to follow along with you. Discussed with Arina Franklin M.D. Mar 13, 2020 14:08
[2020-03-13] MEDS: metroNIDAZOLE 500mg tab ORAL SCH ×2 (14:24→21:22)
[2020-03-13] MEDS: cefTRIAXone 1 GM in D5W 55 ML IVPB SCH (14:36)
[2020-03-13 16:00] VITALS: BP 116/59
--- NOTE | 2020-03-13 16:48 | NUR ---
CASE MANAGEMENT: INITIAL REVIEW 64YR OLD FEMALE FROM HOME CC: ABDOMINAL PAIN SI:APPENDICITIS 98.2 70 16 104/69 98% ON RA WBC 18.4 K+ 3.4 CL-97 BG 135 BNP 1608 PT 12.0 MARIJUANA + IS:IV ZOFRAN X1 IV MORPHINE SULFATE X1 XRAY Chest 1v: Possible calcified nodes in the pulmonary lucretia and aortopulmonary window. CT Abdomen Pelvis w/Contrast-ome indistinctness of the colonic wall with some retroperitoneal stranding bilaterally posterior to the colon. Possibility of a colitis cannot be excluded and should be correlated clinically.Hiatal hernia. Uterine fibroids.Minimal fluid in the cul-de-sac.Degenerative change in the spine. Anterolisthesis of L5 on S1, grade 1.Fluid-filled loops of mid small bowel with some air-fluid levels, nonspecific. This does not appear obstructive and could represent enteritis. Again, clinical correlation suggested. \: 3E MED SURG UNIT OBSERVATION STATUS INTERQUAL CASE MANAGEMENT: REVIEW 03/13/20 SI:APPENDICITIS 99.5 83 18 128/66 98% ON RA WBC 12.5 K+3.4 ALB 3.1 IS:K-DUR PO X1 IV NS @100ML/HR IV ROCEPHIN QD FLAGYL PO TID HEPARIN SQ BID \: 3E MED SURG UNIT PLAN: STOOL C-DIF O&P PENDING HIV SCREEN
--- NOTE | 2020-03-13 19:32 | History & Physical ---
History and Physical History & Physicial dictation number: [id number] Joni Cooper MD Mar 13, 2020 19:32
--- NOTE | 2020-03-13 19:38 | NUR ---
NURSE HAND-OFF: Important Events on Shift:[Monitoring for N & V and abd pain, covid swab] Patient Status: [stable] Diet: [Clear Liquid Diet] Pending Orders: [Stool culture] Pending Results/Labs:[] Pending MD notification:[] Latest Vital Signs: Temperature 98.8 , Pulse 63 , B/P 116 /59 , Respiratory Rate 18 , O2 SAT 99 , Room Air, O2 Flow Rate . Vital Sign Comment: [] Latest Delarosa Fall Score: 35 Fall Risk: Medium Risk Safety Measures: Call light Within Reach, Bed Alarm , Side Rails Side Rails x2, Bed position Low and Locked. Fall Precautions: Call light within reach Yellow Socks Patient Fall Education Report given to [SHANE Moore].
--- NOTE | 2020-03-13 19:39 | NUR ---
NURSE NOTES: Received report from SHANE Flores. Rounding is done. Patient is a/ox4. C/o pain 5/10 and will give medication as ordered. No any distress noted at this time. Breathing is even and unlabored on RA. IV site is intact and patent. IV fluid is running. Bed is on alarm, locked, and lowest position. Call light within reach. Will continue to monitor.
[2020-03-13 20:00] VITALS: BP 109/63
[2020-03-14] VITALS: BP 112/64
--- NOTE | 2020-03-14 03:15 | History and Physical Report ---
DATE OF ADMISSION: 03/12/2020 CHIEF COMPLAINT: Lower abdominal pain. HISTORY OF PRESENT ILLNESS: This is a 64-year-old female with past medical history significant for inguinal groin hernia, status post repair 2 years ago at [facility], hypothyroidism, and asthma, who presented to the hospital complaining about abdominal pain over the past 2 to 3 days associated with nausea. No vomiting. The patient stated that the pain got progressively worsening, initially was in lower quadrant to the right quadrant and mostly in the abdominal area, intermittent nausea, nonbloody emesis, unable to hold down food. She stated that she has been having intermittent diarrhea with nonbloody diarrhea for past two days. She had similar symptoms in the past shortly after initial evaluation in the emergency department. The patient underwent CT scan of the abdomen, which confirmed the patient has some thickening on the colon wall with some retroperitoneal stranding, bilateral posterior to the colon, possibility of colitis cannot be excluded and subsequently, the patient was admitted to the hospital with abdominal pain associated with nausea and diarrhea most likely secondary to the colitis. PAST MEDICAL HISTORY/PAST SURGICAL HISTORY: As above history of asthma, hypothyroidism, uterine fibroids as well as the inguinal hernia, status post repair. MEDICATIONS: At home significant for Synthroid 25 mcg p.o. daily. ALLERGIES: No known drug allergies. SOCIAL HISTORY: Denies any smoking, alcohol, or drugs. FAMILY HISTORY: Noncontributory. REVIEW OF SYSTEMS: Mostly as above complained about abdominal discomfort associated with nausea, vomiting and diarrhea. Denies any fever or chills. Denies any dysuria, frequency, or hematuria. Denies any hemoptysis or hematochezia. Denies any bright red blood per rectum. Denies any loss of consciousness. Denies any fall or head trauma. PHYSICAL EXAMINATION: VITAL SIGNS: On admission, temperature 98.2, pulse of 70, respirations 16, and blood pressure 104/64. GENERAL: The patient awake, responsive, no acute distress. HEAD AND NECK EXAMINATION: Pupils are reactive to light. Extraocular movements intact. Neck was supple. No JVD. LUNGS: Good air entry. No wheezing or rales. HEART: S1, S2. Regular rhythm. No gallops. ABDOMEN: Soft, nondistended. Tender in the lower quadrant. No rebound tenderness. No fluid shift. EXTREMITIES: No cyanosis, clubbing or edema. NEUROLOGICAL: Cranial nerves II through XII grossly intact. The patient moving all the extremities. RECTAL/GENITOURINARY: Refused and deferred. PSYCHIATRIC: Mood and affect is intact. LABORATORY AND DIAGNOSTIC DATA: On admission from the emergency, WBC of 18.4, hemoglobin of 14, hematocrit 45, and platelets is 377. Sodium 137, potassium 3.4, chloride 97, bicarb 28, BUN 18, creatinine 1.1, GFR 49.9, glucose is 135, calcium is 10.1. Total bilirubin of 1.6, direct bilirubin of 0.2, AST of 20, ALT of 20, alkaline phosphatase is 60, first troponin less than 0.0. ProBNP of 1608. Total protein is 8.4. Albumin is 3.9 and lipase is 64. Urine drug screen positive for marijuana. Alcohol level is negative. Urinalysis +3 blood, +2 ketone, +2 glucose, +1 protein, 2 to 4 RBC, +1 leukocytosis, negative nitrate. PT of 12, INR 1.1, and PTT of 32. The patient has a chest x-ray, possible calcified nodule in the pulmonary hilum and aortic pulmonary window. Again, CT scan of the abdomen and pelvic some thickening of the colonic wall with some retroperitoneal stranding bilaterally posterior to the colon. Possibility of colitis cannot be excluded and should be correlated clinically. Hiatal hernia and uterine fibroids minimal fluid in the cul-de-sac, degenerative joint disease of the spine, anterolisthesis of L4 and S1 grade 1. Fluid-filled loops of and mid small bowel and some air-fluid level, nonspecific. ASSESSMENT: 1. Abdominal pain associated with nausea, vomiting and diarrhea, most likely secondary to colitis. 2. Hypokalemia. 3. History of asthma. 4. Hypothyroidism. 5. Uterine fibroids. PLAN: Admit the patient to surgical unit. We will follow up with the laboratory in the morning as well as cultures. Start the patient on broad spectrum antibiotic with Rocephin and Flagyl. We will follow up with continue pain medication as needed and IV hydration. Follow up with Dr. Hall, Pulmonary Critical Care, Dr. Wells from Infectious Disease and Dr. Leoncio Castorena from General surgery. Code status is Full Code. DVT prophylaxis, heparin subcutaneous. Joni Cooper M.D. DR: Cassandra JOB#: [id number] CC:
[2020-03-14 04:00] VITALS: BP 113/63
[2020-03-14 05:43] LABS: BASOPHILS % (AUTO) 0.6 % (0.0-2.0); EOSINOPHILS % (AUTO) 0.2 % (0.0-3.0); HEMATOCRIT 36.6 % (37.0-47.0); HEMOGLOBIN 11.9 G/DL (12.0-16.0); LYMPHOCYTES % (AUTO) 7.7 % (20.0-45.0); MEAN CORPUSCULAR VOLUME 89 FL (80-99); MONOCYTES % (AUTO) 9.8 % (1.0-10.0); NEUTROPHILS % (AUTO) 81.7 % (45.0-75.0); PLATELET COUNT 268 K/UL (150-450); RED BLOOD COUNT 4.12 M/UL (4.20-5.40); RED CELL DISTRIBUTION WIDTH 12.1 % (11.6-14.8); WHITE BLOOD COUNT 9.3 K/UL (4.8-10.8)
[2020-03-14 06:06] LABS: ALANINE AMINOTRANSFERASE 15 U/L (12-78); ALBUMIN 2.7 G/DL (3.4-5.0); ALBUMIN/GLOBULIN RATIO 0.7 (1.0-2.7); ALKALINE PHOSPHATASE 49 U/L (46-116); ANION GAP 6 mmol/L (5-15); ASPARTATE AMINO TRANSFERASE 15 U/L (15-37); BILIRUBIN,TOTAL 0.6 MG/DL (0.2-1.0); BLOOD UREA NITROGEN 12 mg/dL (7-18); CALCIUM 8.6 MG/DL (8.5-10.1); CARBON DIOXIDE 27 MMOL/L (21-32); CHLORIDE 100 MMOL/L (98-107); CREATININE 0.9 MG/DL (0.55-1.30); POTASSIUM 3.7 MMOL/L (3.5-5.1); SODIUM 133 MMOL/L (136-145)
[2020-03-14] MEDS: metroNIDAZOLE 500mg tab ORAL SCH ×3 (06:38→21:06)
--- NOTE | 2020-03-14 07:40 | NUR ---
HAND-OFF: Report given to Andreas LYNN. Patient in stable condition.
--- NOTE | 2020-03-14 07:49 | NUR ---
NURSE NOTES: Report received from Benny RN. Patient seen on rounds, asleep but easily rousable, not in distress, no complaints of pain this time. Nurse reports that stool specimen collection is needed, will reinforce pt instructions. PIV on right forearm patent and infusing IVF as ordered. Pt is continent and ambulatory with assistance. Bed low and locked, siderails up x2, call light placed within reach and instructed to call nurse for assistance. Will continue to monitor.
[2020-03-14 08:00] VITALS: BP 121/69
[2020-03-14] MEDS: Heparin 5000 units/ml inj SUBQ SCH ×2 (08:59→21:07)
--- NOTE | 2020-03-14 09:15 | NUR ---
NURSE NOTES: Stool specimen collected and sent down to lab for cdiff, cultures, ova and parasites and microsporidium orders.
--- NOTE | 2020-03-14 10:28 | Surgery Progress Note ---
Surgery Progress Note Subjective Additional Comments leukocytosis resolved still with pain but improved nausea and emesis per patient. afebrile HD stable Objective Last 24 Hour Vital Signs Date Time Temp Pulse Resp B/P (MAP) Pulse Ox O2 Delivery O2 Flow Rate FiO2 03/14/20 09:00 Room Air 03/14/20 08:00 98.7 57 18 121/69 (86) 95 03/14/20 04:00 98.9 62 18 113/63 (80) 96 03/14/20 00:00 98.8 62 19 112/64 (80) 95 03/13/20 21:00 Room Air 03/13/20 20:00 99.1 61 19 109/63 (78) 98 03/13/20 16:00 98.8 63 18 116/59 (78) 99 03/13/20 12:00 99.2 69 18 131/66 (87) 98 I&O Intake and Output 03/13/20 03/14/20 19:00 07:00 Intake Total 855 ml 1200 ml Output Total 100 ml Balance 755 ml 1200 ml Intake Oral 400 ml IV Total 855 ml 800 ml Output Emesis 100 ml # Voids 2 2 Cardiovascular: RSR Respiratory: clear Abdomen: soft, tenderness - right and left mid abd. , present bowel sounds, non-distended Extremities: no edema, no tenderness, no cyanosis Laboratory Tests Test 03/14/20 05:15 03/14/20 09:10 White Blood Count 9.3 K/UL (4.8-10.8) Red Blood Count 4.12 M/UL (4.20-5.40) L Hemoglobin 11.9 G/DL (12.0-16.0) L Hematocrit 36.6 % (37.0-47.0) L Mean Corpuscular Volume 89 FL (80-99) Mean Corpuscular Hemoglobin 28.8 PG (27.0-31.0) Mean Corpuscular Hemoglobin Concent 32.4 G/DL (32.0-36.0) Red Cell Distribution Width 12.1 % (11.6-14.8) Platelet Count 268 K/UL (150-450) Mean Platelet Volume 5.9 FL (6.5-10.1) L Neutrophils (%) (Auto) 81.7 % (45.0-75.0) H Lymphocytes (%) (Auto) 7.7 % (20.0-45.0) L Monocytes (%) (Auto) 9.8 % (1.0-10.0) Eosinophils (%) (Auto) 0.2 % (0.0-3.0) Basophils (%) (Auto) 0.6 % (0.0-2.0) Erythrocyte Sedimentation Rate 68 MM/HR (0-30) H Sodium Level 133 MMOL/L (136-145) L Potassium Level 3.7 MMOL/L (3.5-5.1) Chloride Level 100 MMOL/L (98-107) Carbon Dioxide Level 27 MMOL/L (21-32) Anion Gap 6 mmol/L (5-15) Blood Urea Nitrogen 12 mg/dL (7-18) Creatinine 0.9 MG/DL (0.55-1.30) Estimat Glomerular Filtration Rate > 60 mL/min (>60) Glucose Level 104 MG/DL (74-106) Lactic Acid Level 1.10 mmol/L (0.4-2.0) Calcium Level 8.6 MG/DL (8.5-10.1) Total Bilirubin 0.6 MG/DL (0.2-1.0) Aspartate Amino Transf (AST/SGOT) 15 U/L (15-37) Alanine Aminotransferase (ALT/SGPT) 15 U/L (12-78) Alkaline Phosphatase 49 U/L (46-116) C-Reactive Protein, Quantitative 20.2 mg/dL (0.00-0.90) H Total Protein 6.5 G/DL (6.4-8.2) Albumin 2.7 G/DL (3.4-5.0) L Globulin 3.8 g/dL Albumin/Globulin Ratio 0.7 (1.0-2.7) L HIV-1 RNA (PCR) log10 Value Pending HIV-1 RNA Ultraquantitative (PCR) Pending HIV (1&2) Antibody Rapid Negative (NEGATIVE) Microsporidia Identification Pending Plan Problems: (1) Colitis Assessment & Plan: 64-year-old female with 2 days abdominal pain nausea vomiting diarrhea. CT noted. Appendix identified without any inflammation. Does have colitis. On examination right lower quadrant pelvic and left lower quadrant all tender with right a little bit more pronounced. Likely diagnosis colitis potential appendicitis Okay for clear liquid diet trial Pain control Antibiotics We will follow serial abdominal examinations and recommendations thank you for let me participate in patient's care pain both right and left mid abd. based on CT consistent with colitis. atypical for appy and more consistent with colitis (2) Uterine fibroid (3) Appendicitis Assessment & Plan: Liver is unremarkable. The gallbladder is normal. The spleen is unremarkable. Pancreas is normal. There is a small hiatal hernia. Adrenal glands are normal. The kidneys are unremarkable. There is some calcification of the aorta. Retroperitoneum is free of adenopathy. The colon is mostly collapsed making evaluation of the wall the colon difficult. It does appear somewhat indistinct throughout. The appendix is borderline in size but periappendiceal inflammatory changes are not present. There is some stranding in the retroperitoneum posterior to the colon bilaterally. Fluid-filled loops of mid small bowel are noted with some air-fluid levels. A minimal amount of free pelvic fluid is present. The uterus is mildly enlarged. Multiple masses are noted within the uterus. Calcifications are also noted within uterine body. Ovaries are not enlarged. Bladder is collapsed. Degenerative changes are noted in the spine. There is anterolisthesis, grade 1, of L5 on S1. Leoncio Castorena Mar 14, 2020 10:28
--- NOTE | 2020-03-14 11:45 | Consultation ---
DATE OF CONSULTATION: 03/14/2020 CONSULTING PHYSICIAN: Travis Avalos MD CHIEF COMPLAINT: Abdominal pain. HISTORY OF PRESENT ILLNESS: This is a very pleasant 64-year-old female, presented with three to four days worth of persistent nausea, vomiting, and diarrhea after having a salad. According to the patient, diarrhea and pain came back pretty quickly after she had the salad. Denies any hematemesis. Last colonoscopy was over five years ago. PAST MEDICAL HISTORY: 1. History of asthma. 2. Hypothyroidism. 3. Uterine fibroids. 4. Inguinal hernia, status post repair. ALLERGIES: No known drug allergies. MEDICATIONS: Please see medication reconciliation list. SOCIAL HISTORY: The patient denies any tobacco, alcohol, or drug abuse. FAMILY HISTORY: Noncontributory. REVIEW OF SYSTEMS: A 10-point review of systems was performed and pertinent positives in HPI. PHYSICAL EXAMINATION: VITAL SIGNS: Temperature 98.9, pulse 60, respirations 18, blood pressure is 113/63. HEENT: Normocephalic, atraumatic. Sclerae anicteric. NECK: Supple. No evidence of obvious lymphadenopathy. CARDIOVASCULAR: Rhythm rate and rhythm. Plus S1-S2. LUNGS: Clear to auscultation bilaterally. ABDOMEN: Positive bowel sounds. Soft. There is tenderness to palpation diffusely mostly on the left compared to right. EXTREMITIES: No cyanosis, no clubbing, no edema. LABORATORY DATA: White count is 9.3, hemoglobin 11.9, hematocrit 36, platelet count is 268,000. CT of the abdomen and pelvis showed evidence of colitis. ASSESSMENT AND PLAN: This is a 64-year-old female with signs and symptoms highly suspicious for gastroenteritis, most likely from the salad that she had. Plan will be to continue on ceftriaxone and Flagyl, which has already been started by primary care physician. Discontinue MiraLAX. Follow laboratories. Monitor for abdominal pain and diarrhea. Send stool for C. difficile and culture. Consider colonoscopy on Monday if needed. I want to thank, Dr. Joni Cooper for this kind referral. Travis Avalos M.D. DR: THI JOB#: [id number] CC: Joni Cooper MD.; Fax#: [phone]
[2020-03-14 12:00] VITALS: BP 134/72
[2020-03-14] MEDS: Morphine Sulfate 2mg/ml Inj(IV/IM USE ONLY) IVP PRN ×2 (12:11→19:50)
[2020-03-14] MEDS: cefTRIAXone 1 GM in D5W 55 ML IVPB SCH (14:20)
--- NOTE | 2020-03-14 14:25 | Internal Med Progress Note ---
Subjective Date of Service: Mar 14, 2020 Physician Name Juan Perry Attending Physician Joni Cooper MD Current Medications Medications (Trade) Dose Ordered Sig/Candie Route PRN Reason Start Time Stop Time Status Last Admin Dose Admin Acetaminophen (Tylenol) 650 mg Q4H PRN ORAL Temp >100.5 03/12/20 18:15 04/11/20 18:14 Al Hydroxide/Mg Hydroxide (Mylanta II) 30 ml Q6H PRN ORAL dyspepsia 03/12/20 18:15 04/11/20 18:14 Ceftriaxone Sodium 1 gm/ Dextrose 55 ml @ 110 mls/hr Q24H IVPB 03/13/20 15:00 03/20/20 14:59 03/14/20 14:20 Dextrose (Dextrose 50%) 25 ml Q30M PRN IV Hypoglycemia 03/12/20 18:15 06/10/20 18:14 Dextrose (Dextrose 50%) 50 ml Q30M PRN IV Hypoglycemia 03/12/20 18:15 06/10/20 18:14 Diphenhydramine HCl (Benadryl) 25 mg Q6H PRN ORAL Itching/Pruritis 03/12/20 18:15 04/11/20 18:14 Famotidine (Pepcid I.v.) 20 mg Q12HR IVP 03/12/20 21:00 04/11/20 20:59 03/14/20 08:58 Heparin Sodium (Porcine) (Heparin 5000 units/ml) 5,000 units EVERY 12 HOURS SUBQ 03/12/20 21:00 04/26/20 20:59 03/14/20 08:59 Lorazepam (Ativan) 1 mg Q4H PRN ORAL For Anxiety 03/12/20 18:15 03/19/20 18:14 Metoclopramide HCl (Reglan) 10 mg Q6H PRN IVP severe nausea 03/12/20 18:45 04/11/20 18:44 03/13/20 20:19 Metronidazole (Flagyl) 500 mg Q8HR ORAL 03/13/20 14:15 03/20/20 14:14 03/14/20 13:20 Morphine Sulfate (Morphine Sulfate) 1 mg Q3H PRN IVP Mild Pain (Pain Scale 1-3) 03/12/20 18:15 03/19/20 18:14 Morphine Sulfate (Morphine Sulfate) 2 mg Q4H PRN IVP Moderate Pain (Pain Scale 4-6) 03/12/20 18:15 03/19/20 18:14 03/14/20 12:11 Morphine Sulfate (Morphine Sulfate) 4 mg Q3H PRN IVP Severe Pain (Pain Scale 7-10) 03/12/20 18:15 03/19/20 18:14 Nitroglycerin (Ntg) 0.4 mg Q5M X 3 DOSES PRN SL Prn Chest Pain 03/12/20 18:45 04/11/20 18:44 Ondansetron HCl (Zofran) 4 mg Q6H PRN IVP Nausea & Vomiting 03/12/20 18:15 04/11/20 18:14 03/13/20 05:25 Sodium Chloride 1,000 ml @ 100 mls/hr Q10H IVLG 03/12/20 19:03 04/11/20 19:02 03/14/20 12:11 Temazepam (Restoril) 15 mg HSPRN PRN ORAL Insomnia 03/12/20 18:15 03/19/20 18:14 03/13/20 21:32 Allergies: Coded Allergies: No Known Allergies (Unverified , 03/12/20) ROS Limited/Unobtainable: No Constitutional: Reports: no symptoms HEENT: Reports: no symptoms Cardiovascular: Reports: no symptoms Respiratory: Reports: no symptoms Gastrointestinal/Abdominal: Reports: abdominal pain, nausea, vomiting Genitourinary: Reports: no symptoms Neurologic/Psychiatric: Reports: no symptoms Subjective 64 YO F admitted with abdominal pain, nausea and vomiting. Now gastroenteritis/ colitis. Cover for Int Jeremie-Dr Cooper Objective Last Vital Signs Date Time Temp Pulse Resp B/P (MAP) Pulse Ox O2 Delivery O2 Flow Rate FiO2 03/14/20 12:00 99.3 56 18 134/72 (92) 99 03/14/20 09:00 Room Air Laboratory Tests Test 03/14/20 05:15 03/14/20 09:10 White Blood Count 9.3 K/UL (4.8-10.8) Red Blood Count 4.12 M/UL (4.20-5.40) L Hemoglobin 11.9 G/DL (12.0-16.0) L Hematocrit 36.6 % (37.0-47.0) L Mean Corpuscular Volume 89 FL (80-99) Mean Corpuscular Hemoglobin 28.8 PG (27.0-31.0) Mean Corpuscular Hemoglobin Concent 32.4 G/DL (32.0-36.0) Red Cell Distribution Width 12.1 % (11.6-14.8) Platelet Count 268 K/UL (150-450) Mean Platelet Volume 5.9 FL (6.5-10.1) L Neutrophils (%) (Auto) 81.7 % (45.0-75.0) H Lymphocytes (%) (Auto) 7.7 % (20.0-45.0) L Monocytes (%) (Auto) 9.8 % (1.0-10.0) Eosinophils (%) (Auto) 0.2 % (0.0-3.0) Basophils (%) (Auto) 0.6 % (0.0-2.0) Erythrocyte Sedimentation Rate 68 MM/HR (0-30) H Sodium Level 133 MMOL/L (136-145) L Potassium Level 3.7 MMOL/L (3.5-5.1) Chloride Level 100 MMOL/L (98-107) Carbon Dioxide Level 27 MMOL/L (21-32) Anion Gap 6 mmol/L (5-15) Blood Urea Nitrogen 12 mg/dL (7-18) Creatinine 0.9 MG/DL (0.55-1.30) Estimat Glomerular Filtration Rate > 60 mL/min (>60) Glucose Level 104 MG/DL (74-106) Lactic Acid Level 1.10 mmol/L (0.4-2.0) Calcium Level 8.6 MG/DL (8.5-10.1) Total Bilirubin 0.6 MG/DL (0.2-1.0) Aspartate Amino Transf (AST/SGOT) 15 U/L (15-37) Alanine Aminotransferase (ALT/SGPT) 15 U/L (12-78) Alkaline Phosphatase 49 U/L (46-116) C-Reactive Protein, Quantitative 20.2 mg/dL (0.00-0.90) H Total Protein 6.5 G/DL (6.4-8.2) Albumin 2.7 G/DL (3.4-5.0) L Globulin 3.8 g/dL Albumin/Globulin Ratio 0.7 (1.0-2.7) L HIV-1 RNA (PCR) log10 Value Pending HIV-1 RNA Ultraquantitative (PCR) Pending HIV (1&2) Antibody Rapid Negative (NEGATIVE) Microsporidia Identification Pending Microbiology Date/Time Source Procedure Growth Status 03/13/20 16:50 Nasopharynx SARS-CoV-2 RdRp Gene Assay - Final Complete 03/12/20 14:24 Nasopharynx SARS-CoV-2 RdRp Gene Assay - Final Complete Intake and Output 03/13/20 03/14/20 19:00 07:00 Intake Total 855 ml 1200 ml Output Total 100 ml Balance 755 ml 1200 ml Intake Oral 400 ml IV Total 855 ml 800 ml Output Emesis 100 ml # Voids 2 2 Objective PHYSICAL EXAMINATION: GENERAL: The patient awake, responsive, no acute distress. HEAD AND NECK EXAMINATION: Pupils are reactive to light. Extraocular movements intact. Neck was supple. No JVD. LUNGS: Good air entry. No wheezing or rales. HEART: S1, S2. Regular rhythm. No gallops. ABDOMEN: Soft, nondistended. Tender in the lower quadrant. No rebound tenderness. No fluid shift. EXTREMITIES: No cyanosis, clubbing or edema. NEUROLOGICAL: Cranial nerves II through XII grossly intact. The patient moving all the extremities. RECTAL/GENITOURINARY: Refused and deferred. PSYCHIATRIC: Mood and affect is intact. Assessment/Plan Assessment/Plan ASSESSMENT: 1. Abdominal pain associated with nausea, vomiting and diarrhea 2. Gastroenteritis/colitis. 3. Hypokalemia. 4. History of asthma. 5. Hypothyroidism. 6. Uterine fibroids. PLAN: 1. Admit the patient to surgical unit. 2. Start the patient on broad spectrum antibiotic with Rocephin and Flagyl. 3. continue pain medication as needed and IV hydration 4. Dr. Hall= Pulmonary Critical Care 5. Dr. Wells= Infectious Disease 6. Dr. Leoncio Castorena =General surgery. 7. Code status is Full Code. 8. DVT prophylaxis=heparin subcutaneous. Juan Perry MD Mar 14, 2020 14:25
[2020-03-14 16:00] VITALS: BP 145/77
--- NOTE | 2020-03-14 17:49 | Pulmonology Progress Note ---
Subjective ROS Limited/Unobtainable: No Allergies: Coded Allergies: No Known Allergies (Unverified , 03/12/20) Objective Last 24 Hour Vital Signs Date Time Temp Pulse Resp B/P (MAP) Pulse Ox O2 Delivery O2 Flow Rate FiO2 03/14/20 16:00 97.8 52 18 145/77 (99) 94 03/14/20 12:00 99.3 56 18 134/72 (92) 99 03/14/20 09:00 Room Air 03/14/20 08:00 98.7 57 18 121/69 (86) 95 03/14/20 04:00 98.9 62 18 113/63 (80) 96 03/14/20 00:00 98.8 62 19 112/64 (80) 95 03/13/20 21:00 Room Air 03/13/20 20:00 99.1 61 19 109/63 (78) 98 Intake and Output 03/13/20 03/14/20 19:00 07:00 Intake Total 855 ml 1300 ml Output Total 100 ml Balance 755 ml 1300 ml Intake Oral 400 ml IV Total 855 ml 900 ml Output Emesis 100 ml # Voids 2 2 General Appearance: WD/WN HEENT: normocephalic, atraumatic Respiratory: chest wall non-tender, lungs clear Cardiovascular: normal peripheral pulses, normal rate Abdomen: normal bowel sounds, soft, non tender, no organomegaly Genitourinary: normal external genitalia Extremities: no clubbing Neurologic: financial officer II-XII grossly normal, abnormal gait Microbiology Date/Time Source Procedure Growth Status 03/13/20 16:50 Nasopharynx SARS-CoV-2 RdRp Gene Assay - Final Complete 03/12/20 14:24 Nasopharynx SARS-CoV-2 RdRp Gene Assay - Final Complete Laboratory Tests 03/14/20 05:15: White Blood Count 9.3, Red Blood Count 4.12L, Hemoglobin 11.9L, Hematocrit 36.6L , Mean Corpuscular Volume 89, Mean Corpuscular Hemoglobin 28.8, Mean Corpuscular Hemoglobin Concent 32.4, Red Cell Distribution Width 12.1, Platelet Count 268, Mean Platelet Volume 5.9L, Neutrophils (%) (Auto) 81.7H, Lymphocytes (%) (Auto) 7.7L, Monocytes (%) (Auto) 9.8, Eosinophils (%) (Auto) 0.2, Basophils (%) (Auto) 0.6, Erythrocyte Sedimentation Rate 68H, Sodium Level 133L , Potassium Level 3.7, Chloride Level 100, Carbon Dioxide Level 27, Anion Gap 6 , Blood Urea Nitrogen 12, Creatinine 0.9, Estimat Glomerular Filtration Rate > 60, Glucose Level 104, Lactic Acid Level 1.10, Calcium Level 8.6, Total Bilirubin 0.6, Aspartate Amino Transf (AST/SGOT) 15, Alanine Aminotransferase ( ALT/SGPT) 15, Alkaline Phosphatase 49, C-Reactive Protein, Quantitative 20.2H, Total Protein 6.5, Albumin 2.7L, Globulin 3.8, Albumin/Globulin Ratio 0.7L, HIV- 1 RNA (PCR) log10 Value [Pending], HIV-1 RNA Ultraquantitative (PCR) [Pending], HIV (1&2) Antibody Rapid Negative 03/14/20 09:10: Microsporidia Identification [Pending] Current Medications Medications (Trade) Dose Ordered Sig/Candie Route PRN Reason Start Time Stop Time Status Last Admin Dose Admin Acetaminophen (Tylenol) 650 mg Q4H PRN ORAL Temp >100.5 03/12/20 18:15 04/11/20 18:14 Al Hydroxide/Mg Hydroxide (Mylanta II) 30 ml Q6H PRN ORAL dyspepsia 03/12/20 18:15 04/11/20 18:14 Ceftriaxone Sodium 1 gm/ Dextrose 55 ml @ 110 mls/hr Q24H IVPB 03/13/20 15:00 03/20/20 14:59 03/14/20 14:20 Dextrose (Dextrose 50%) 25 ml Q30M PRN IV Hypoglycemia 03/12/20 18:15 06/10/20 18:14 Dextrose (Dextrose 50%) 50 ml Q30M PRN IV Hypoglycemia 03/12/20 18:15 06/10/20 18:14 Diphenhydramine HCl (Benadryl) 25 mg Q6H PRN ORAL Itching/Pruritis 03/12/20 18:15 04/11/20 18:14 Famotidine (Pepcid I.v.) 20 mg Q12HR IVP 03/12/20 21:00 04/11/20 20:59 03/14/20 08:58 Heparin Sodium (Porcine) (Heparin 5000 units/ml) 5,000 units EVERY 12 HOURS SUBQ 03/12/20 21:00 04/26/20 20:59 03/14/20 08:59 Lorazepam (Ativan) 1 mg Q4H PRN ORAL For Anxiety 03/12/20 18:15 03/19/20 18:14 Metoclopramide HCl (Reglan) 10 mg Q6H PRN IVP severe nausea 03/12/20 18:45 04/11/20 18:44 03/13/20 20:19 Metronidazole (Flagyl) 500 mg Q8HR ORAL 03/13/20 14:15 03/20/20 14:14 03/14/20 13:20 Morphine Sulfate (Morphine Sulfate) 1 mg Q3H PRN IVP Mild Pain (Pain Scale 1-3) 03/12/20 18:15 03/19/20 18:14 Morphine Sulfate (Morphine Sulfate) 2 mg Q4H PRN IVP Moderate Pain (Pain Scale 4-6) 03/12/20 18:15 03/19/20 18:14 03/14/20 12:11 Morphine Sulfate (Morphine Sulfate) 4 mg Q3H PRN IVP Severe Pain (Pain Scale 7-10) 03/12/20 18:15 03/19/20 18:14 Nitroglycerin (Ntg) 0.4 mg Q5M X 3 DOSES PRN SL Prn Chest Pain 03/12/20 18:45 04/11/20 18:44 Ondansetron HCl (Zofran) 4 mg Q6H PRN IVP Nausea & Vomiting 03/12/20 18:15 04/11/20 18:14 03/13/20 05:25 Sodium Chloride 1,000 ml @ 100 mls/hr Q10H IVLG 03/12/20 19:03 04/11/20 19:02 03/14/20 12:11 Temazepam (Restoril) 15 mg HSPRN PRN ORAL Insomnia 03/12/20 18:15 03/19/20 18:14 03/13/20 21:32 Assessment/Plan Problems: (1) Colitis (2) History of asthma (3) Hypothyroidism Assessment/Plan advance diet as tolerated IV fluids check electrolytes symptomatic treatment dvt prophylaxis Jihan Hall MD Mar 14, 2020 17:49
--- NOTE | 2020-03-14 19:07 | NUR ---
NURSE HAND-OFF: Important Events on Shift: No adverse events noted Patient Status: Stable Diet: Clear Liquids Pending Orders: Stool for ova and parasites x2 Pending Results/Labs: Stool cultures, cdiff, ova and parasites Pending MD notification: Latest Vital Signs: Temperature 97.8 , Pulse 52 , B/P 145 /77 , Respiratory Rate 18 , O2 SAT 94 , Room Air, O2 Flow Rate . Vital Sign Comment: Latest Delarosa Fall Score: 35 Fall Risk: Medium Risk Safety Measures: Call light Within Reach, Bed Alarm , Side Rails Side Rails x2, Bed position Low and Locked. Fall Precautions: Yellow Socks Patient Fall Education Report given to Xavier LYNN.
--- NOTE | 2020-03-14 19:25 | NUR ---
NURSE NOTES: Received report from SHANE Aviles. Pt A/Ox4 No distress noted. Denies pain. Instructed pt to call when having a BM for stool specimen collection. IV is on right forearm intact and running IV fluids as ordered. Bed is low and locked position, siderails upx2, call light within reach., Will continue to monitor.
[2020-03-14 20:00] VITALS: BP 138/75
[2020-03-15] VITALS: BP 125/73
[2020-03-15 04:00] VITALS: BP 114/66
[2020-03-15] MEDS: metroNIDAZOLE 500mg tab ORAL SCH ×3 (05:05→21:37)
[2020-03-15 06:42] LABS: BASOPHILS % (AUTO) 0.6 % (0.0-2.0); EOSINOPHILS % (AUTO) 2.1 % (0.0-3.0); HEMATOCRIT 35.8 % (37.0-47.0); HEMOGLOBIN 11.7 G/DL (12.0-16.0); LYMPHOCYTES % (AUTO) 17.7 % (20.0-45.0); MEAN CORPUSCULAR VOLUME 89 FL (80-99); MONOCYTES % (AUTO) 11.9 % (1.0-10.0); NEUTROPHILS % (AUTO) 67.7 % (45.0-75.0); PLATELET COUNT 280 K/UL (150-450); RED BLOOD COUNT 4.04 M/UL (4.20-5.40); RED CELL DISTRIBUTION WIDTH 11.8 % (11.6-14.8); WHITE BLOOD COUNT 6.6 K/UL (4.8-10.8)
[2020-03-15 07:06] LABS: ALANINE AMINOTRANSFERASE 14 U/L (12-78); ALBUMIN 2.5 G/DL (3.4-5.0); ALBUMIN/GLOBULIN RATIO 0.7 (1.0-2.7); ALKALINE PHOSPHATASE 46 U/L (46-116); ANION GAP 8 mmol/L (5-15); ASPARTATE AMINO TRANSFERASE 14 U/L (15-37); BILIRUBIN,TOTAL 0.3 MG/DL (0.2-1.0); BLOOD UREA NITROGEN 9 mg/dL (7-18); CALCIUM 8.4 MG/DL (8.5-10.1); CARBON DIOXIDE 25 MMOL/L (21-32); CHLORIDE 102 MMOL/L (98-107); CREATININE 0.9 MG/DL (0.55-1.30); POTASSIUM 3.3 MMOL/L (3.5-5.1); SODIUM 135 MMOL/L (136-145)
[2020-03-15 07:17] LABS: % IRON SATURATION 15 % (15-50); IRON 24 ug/dL (50-175); TOTAL IRON BINDING CAPACITY 161 ug/dL (250-450)
--- NOTE | 2020-03-15 07:30 | NUR ---
NURSE HAND-OFF: Important Events on Shift:Monitoring vitials, N & V, and pain (Zofran x1 and Morphine x1 in shift) Patient Status: Diet: Pending Orders: Pending Results/Labs: Pending MD notification: Latest Vital Signs: Temperature 97.9 , Pulse 51 , B/P 114 /66 , Respiratory Rate 18 , O2 SAT 96 , Room Air, O2 Flow Rate . Vital Sign Comment: Latest Delarosa Fall Score: 35 Fall Risk: Medium Risk Safety Measures: Call light Within Reach, Bed Alarm , Side Rails Side Rails x2, Bed position Low and Locked. Fall Precautions: Yellow Socks Patient Fall Education Report given to SHANE Duff. Addendum: 03/15/20 at 0738 by Xavier Dominguez RN Important Events on Shift: Monitoring vitials, N & V, and pain. (Zofran x1 & Morphine x1 in shift) Patient Status: Stable Diet: Clear liquid diet Pending Orders: Stool for ova and parasites x2 Pending Results/Labs: Stool cultures, cdiff, ova and parasites, (CBC, CMP, Carcinembryonic Antigen) Pending MD notification:[N/A] Latest Vital Signs: Temperature 97.9 , Pulse 51 , B/P 114 /66 , Respiratory Rate 18 , O2 SAT 96 , Room Air, O2 Flow Rate . Vital Sign Comment: Pt pulse running low. Pt is not showing any signs of distress. Notified oncoming nurse to monitor Latest Delarosa Fall Score: 35 Fall Risk: Medium Risk Safety Measures: Call light Within Reach, Bed Alarm , Side Rails Side Rails x2, Bed position Low and Locked. Fall Precautions: Yellow Socks Patient Fall Education Report given to []. 311 Important Events on Shift: Educated pt to call when having a BM for Occult blood Stool. Respiratory treatment Q6. Heparin was not given because of low plt count (112) Patient Status: [Stable] Diet: [No Added salt Diet] Pending Orders: [Occult Blood Stool] Pending Results/Labs:[] Pending MD notification:[] Latest Vital Signs: Temperature 98.0 , Pulse 70 , B/P 141 /70 , Respiratory Rate 18 , O2 SAT 93 , Nasal Cannula, O2 Flow Rate 2.0 . Vital Sign Comment: Latest Delarosa Fall Score: 50 Fall Risk: High Risk Safety Measures: Call light Within Reach, Bed Alarm Zone 1, Side Rails Side Rails x2, Bed position Low and Locked. Fall Precautions: Terabitz Patient Fall Education Report given to []. Addendum: 03/15/20 at 0739 by Xavier Dominguez RN Important Events on Shift: Monitoring vitials, N & V, and pain. (Zofran x1 & Morphine x1 in shift) Patient Status: Stable Diet: Clear liquid diet Pending Orders: Stool for ova and parasites x2 Pending Results/Labs: Stool cultures, cdiff, ova and parasites, (CBC, CMP, Carcinembryonic Antigen) Pending MD notification:[N/A] Latest Vital Signs: Temperature 97.9 , Pulse 51 , B/P 114 /66 , Respiratory Rate 18 , O2 SAT 96 , Room Air, O2 Flow Rate . Vital Sign Comment: Pt pulse running low. Pt is not showing any signs of distress. Notified oncoming nurse to monitor Latest Delarosa Fall Score: 35 Fall Risk: Medium Risk Safety Measures: Call light Within Reach, Bed Alarm , Side Rails Side Rails x2, Bed position Low and Locked. Fall Precautions: Yellow Socks Patient Fall Education Report given to SHANE Duff
--- NOTE | 2020-03-15 07:45 | NUR ---
NURSE NOTES: Received report from SHANE Hernandez. Pt awake in bed, RA, A/Ox4. No acute distress noted. Denies pain at this time. IV intact and patent running IV fluids as ordered. Bed is low and locked position, siderails upx2, call light within reach. Will continue to monitor.
[2020-03-15 08:00] VITALS: BP 128/67
[2020-03-15] MEDS: Heparin 5000 units/ml inj SUBQ SCH ×3 (08:23→21:50)
--- NOTE | 2020-03-15 08:48 | General Progress Note ---
Assessment/Plan Assessment/Plan: colitis improving with abx given anemia, no recent colonoscopy and now with colitis will plan EGD and colonoscopy for tomorrow Subjective ROS Limited/Unobtainable: Yes Allergies: Coded Allergies: No Known Allergies (Unverified , 03/12/20) Objective Last 24 Hour Vital Signs Date Time Temp Pulse Resp B/P (MAP) Pulse Ox O2 Delivery O2 Flow Rate FiO2 03/15/20 04:00 97.9 51 18 114/66 (82) 96 03/15/20 00:00 98.2 52 18 125/73 (90) 97 03/14/20 21:00 Room Air 03/14/20 20:00 98.0 54 18 138/75 (96) 95 03/14/20 16:00 97.8 52 18 145/77 (99) 94 03/14/20 12:00 99.3 56 18 134/72 (92) 99 03/14/20 09:00 Room Air Intake and Output 03/14/20 03/15/20 19:00 07:00 Intake Total 1695 ml 1450 ml Balance 1695 ml 1450 ml Intake Oral 640 ml 350 ml IV Total 1055 ml 1100 ml # Voids 2 2 # Bowel Movements 1 Laboratory Tests 03/14/20 09:10: Microsporidia Identification [Pending] 03/15/20 05:30: White Blood Count 6.6, Red Blood Count 4.04L, Hemoglobin 11.7L, Hematocrit 35.8L , Mean Corpuscular Volume 89, Mean Corpuscular Hemoglobin 29.0, Mean Corpuscular Hemoglobin Concent 32.7, Red Cell Distribution Width 11.8, Platelet Count 280, Mean Platelet Volume 6.0L, Neutrophils (%) (Auto) 67.7, Lymphocytes ( %) (Auto) 17.7L, Monocytes (%) (Auto) 11.9H, Eosinophils (%) (Auto) 2.1, Basophils (%) (Auto) 0.6, Sodium Level 135L, Potassium Level 3.3L, Chloride Level 102, Carbon Dioxide Level 25, Anion Gap 8, Blood Urea Nitrogen 9, Creatinine 0.9, Estimat Glomerular Filtration Rate > 60, Glucose Level 94, Calcium Level 8.4L, Iron Level 24L, Total Iron Binding Capacity 161L, Percent Iron Saturation 15, Unsaturated Iron Binding 137, Total Bilirubin 0.3, Aspartate Amino Transf (AST/SGOT) 14L, Alanine Aminotransferase (ALT/SGPT) 14, Alkaline Phosphatase 46, Total Protein 5.9L, Albumin 2.5L, Globulin 3.4, Albumin /Globulin Ratio 0.7L, Carcinoembryonic Antigen [Pending] Height (Feet): 5 Height (Inches): 4.00 Weight (Pounds): 115 General Appearance: alert EENT: normal ENT inspection Neck: supple Cardiovascular: normal rate Respiratory/Chest: lungs clear Abdomen: normal bowel sounds, non tender, soft Extremities: non-tender Travis Avalos MD Mar 15, 2020 08:48
--- NOTE | 2020-03-15 10:04 | Infectious Diseases Prog Note ---
Assessment/Plan Abx: Zosyn 03/12- Assessment: COVID 19 neg x2 (03/12, 03/13 rapid COVID PCR) Afebrile Leukocytosis, improving -u/a neg -CXR: Possible calcified nodes in the pulmonary lucretia and aortopulmonary window. Abdominal pain- enterocolitis- r/o infectious ?appendicitis -CT abd/p: Some indistinctness of the colonic wall with some retroperitoneal stranding bilaterally posterior to the colon. Possibility of a colitis cannot be excluded and should be correlated clinically. Hiatal hernia. Uterine fibroids. Minimal fluid in the cul-de-sac. Degenerative change in the spine. Anterolisthesis of L5 on S1, grade 1. Fluid-filled loops of mid small bowel with some air-fluid levels, nonspecific. This does not appear obstructive and could represent enteritis. UDS+ THC Asthma groin hernia s/p repair 2yrs ago Plan: -Continue Ceftriaxone #2 and Flagyl #2 - 03/13/20 SP Zosyn #2 -f/u cx -Monitor CBC/CMP, temperatures -stool cx, Cdiff, ova +p -HIV ab screen and VL Thank you for this consultation. Will continue to follow along with you. Discussed with RN. Subjective Allergies: Coded Allergies: No Known Allergies (Unverified , 03/12/20) Afebrile No Leukocytosis Pain controlled Objective Last 24 Hour Vital Signs Date Time Temp Pulse Resp B/P (MAP) Pulse Ox O2 Delivery O2 Flow Rate FiO2 03/15/20 09:00 Room Air 03/15/20 08:00 97.9 54 16 128/67 (87) 99 03/15/20 04:00 97.9 51 18 114/66 (82) 96 03/15/20 00:00 98.2 52 18 125/73 (90) 97 03/14/20 21:00 Room Air 03/14/20 20:00 98.0 54 18 138/75 (96) 95 03/14/20 16:00 97.8 52 18 145/77 (99) 94 03/14/20 12:00 99.3 56 18 134/72 (92) 99 Height (Feet): 5 Height (Inches): 4.00 Weight (Pounds): 115 Gen: NAD, On RA HEENT; NCAT, MMM, EOMI, No oral lesions Respiratory: Equal rise and fall, RRR Gastrointestinal: Soft ND Skin: No rash on exposed skin Microbiology Date/Time Source Procedure Growth Status 03/13/20 16:50 Nasopharynx SARS-CoV-2 RdRp Gene Assay - Final Complete 03/12/20 14:24 Nasopharynx SARS-CoV-2 RdRp Gene Assay - Final Complete 03/14/20 09:10 Stool Stool Culture Pending Resulted 03/14/20 09:10 Stool Clostridium difficile Toxin Assay - Final Resulted Laboratory Tests Test 03/15/20 05:30 White Blood Count 6.6 K/UL (4.8-10.8) Red Blood Count 4.04 M/UL (4.20-5.40) L Hemoglobin 11.7 G/DL (12.0-16.0) L Hematocrit 35.8 % (37.0-47.0) L Mean Corpuscular Volume 89 FL (80-99) Mean Corpuscular Hemoglobin 29.0 PG (27.0-31.0) Mean Corpuscular Hemoglobin Concent 32.7 G/DL (32.0-36.0) Red Cell Distribution Width 11.8 % (11.6-14.8) Platelet Count 280 K/UL (150-450) Mean Platelet Volume 6.0 FL (6.5-10.1) L Neutrophils (%) (Auto) 67.7 % (45.0-75.0) Lymphocytes (%) (Auto) 17.7 % (20.0-45.0) L Monocytes (%) (Auto) 11.9 % (1.0-10.0) H Eosinophils (%) (Auto) 2.1 % (0.0-3.0) Basophils (%) (Auto) 0.6 % (0.0-2.0) Sodium Level 135 MMOL/L (136-145) L Potassium Level 3.3 MMOL/L (3.5-5.1) L Chloride Level 102 MMOL/L (98-107) Carbon Dioxide Level 25 MMOL/L (21-32) Anion Gap 8 mmol/L (5-15) Blood Urea Nitrogen 9 mg/dL (7-18) Creatinine 0.9 MG/DL (0.55-1.30) Estimat Glomerular Filtration Rate > 60 mL/min (>60) Glucose Level 94 MG/DL (74-106) Calcium Level 8.4 MG/DL (8.5-10.1) L Iron Level 24 ug/dL (50-175) L Total Iron Binding Capacity 161 ug/dL (250-450) L Percent Iron Saturation 15 % (15-50) Unsaturated Iron Binding 137 ug/dL (112-346) Total Bilirubin 0.3 MG/DL (0.2-1.0) Aspartate Amino Transf (AST/SGOT) 14 U/L (15-37) L Alanine Aminotransferase (ALT/SGPT) 14 U/L (12-78) Alkaline Phosphatase 46 U/L (46-116) Total Protein 5.9 G/DL (6.4-8.2) L Albumin 2.5 G/DL (3.4-5.0) L Globulin 3.4 g/dL Albumin/Globulin Ratio 0.7 (1.0-2.7) L Carcinoembryonic Antigen Pending Current Medications Medications (Trade) Dose Ordered Sig/Candie Route PRN Reason Start Time Stop Time Status Last Admin Dose Admin Acetaminophen (Tylenol) 650 mg Q4H PRN ORAL Temp >100.5 03/12/20 18:15 04/11/20 18:14 Al Hydroxide/Mg Hydroxide (Mylanta II) 30 ml Q6H PRN ORAL dyspepsia 03/12/20 18:15 04/11/20 18:14 Ceftriaxone Sodium 1 gm/ Dextrose 55 ml @ 110 mls/hr Q24H IVPB 03/13/20 15:00 03/20/20 14:59 03/14/20 14:20 Dextrose (Dextrose 50%) 25 ml Q30M PRN IV Hypoglycemia 03/12/20 18:15 06/10/20 18:14 Dextrose (Dextrose 50%) 50 ml Q30M PRN IV Hypoglycemia 03/12/20 18:15 06/10/20 18:14 Dextrose/ Electrolytes 1,000 ml @ 75 mls/hr [id number] IV 03/15/20 16:00 04/14/20 15:59 Diphenhydramine HCl (Benadryl) 25 mg Q6H PRN ORAL Itching/Pruritis 03/12/20 18:15 04/11/20 18:14 Famotidine (Pepcid I.v.) 20 mg Q12HR IVP 03/12/20 21:00 9/5/20 20:59 03/15/20 08:21 Heparin Sodium (Porcine) (Heparin 5000 units/ml) 5,000 units EVERY 12 HOURS SUBQ 03/12/20 21:00 04/26/20 20:59 03/15/20 08:23 Lorazepam (Ativan) 1 mg Q4H PRN ORAL For Anxiety 03/12/20 18:15 03/19/20 18:14 Metoclopramide HCl (Reglan) 10 mg Q6H PRN IVP severe nausea 03/12/20 18:45 04/11/20 18:44 03/13/20 20:19 Metronidazole (Flagyl) 500 mg Q8HR ORAL 03/13/20 14:15 03/20/20 14:14 03/15/20 05:05 Morphine Sulfate (Morphine Sulfate) 1 mg Q3H PRN IVP Mild Pain (Pain Scale 1-3) 03/12/20 18:15 03/19/20 18:14 Morphine Sulfate (Morphine Sulfate) 2 mg Q4H PRN IVP Moderate Pain (Pain Scale 4-6) 03/12/20 18:15 03/19/20 18:14 03/14/20 19:50 Morphine Sulfate (Morphine Sulfate) 4 mg Q3H PRN IVP Severe Pain (Pain Scale 7-10) 03/12/20 18:15 03/19/20 18:14 Nitroglycerin (Ntg) 0.4 mg Q5M X 3 DOSES PRN SL Prn Chest Pain 03/12/20 18:45 04/11/20 18:44 Ondansetron HCl (Zofran) 4 mg Q6H PRN IVP Nausea & Vomiting 03/12/20 18:15 04/11/20 18:14 03/14/20 21:06 Polyethylene Glycol (Miralax) 238 gm ONCE ORAL 03/15/20 16:00 03/15/20 17:00 Sodium Chloride 1,000 ml @ 100 mls/hr Q10H IVLG 03/12/20 19:03 04/11/20 19:02 03/14/20 23:30 Temazepam (Restoril) 15 mg HSPRN PRN ORAL Insomnia 03/12/20 18:15 03/19/20 18:14 03/13/20 21:32 Yuri Dolan MD Mar 15, 2020:04
--- NOTE | 2020-03-15 11:12 | NUR ---
NURSE NOTES: Pt stated that " I feel nauseous, and I don't think I can do Colonoscopy tomorrow. Also I do not want to go to restroom all day." Explained benefits of colonoscopy and offered medication for nausea. Pt agreed to take the med for nausea. Zofran IV given as ordered. Pt said she would let the nurse know how she feels before she takes MiraLAX today.
[2020-03-15 12:00] VITALS: BP 133/76
--- NOTE | 2020-03-15 12:51 | Surgery Progress Note ---
Surgery Progress Note Subjective Symptoms: improved, tolerating diet, passing flatus, BM, pain decreased Objective Last 24 Hour Vital Signs Date Time Temp Pulse Resp B/P (MAP) Pulse Ox O2 Delivery O2 Flow Rate FiO2 03/15/20 12:00 97.8 51 16 133/76 (95) 99 03/15/20 09:00 Room Air 03/15/20 08:00 97.9 54 16 128/67 (87) 99 03/15/20 04:00 97.9 51 18 114/66 (82) 96 03/15/20 00:00 98.2 52 18 125/73 (90) 97 03/14/20 21:00 Room Air 03/14/20 20:00 98.0 54 18 138/75 (96) 95 03/14/20 16:00 97.8 52 18 145/77 (99) 94 I&O Intake and Output 03/14/20 03/15/20 19:00 07:00 Intake Total 1695 ml 1450 ml Balance 1695 ml 1450 ml Intake Oral 640 ml 350 ml IV Total 1055 ml 1100 ml # Voids 2 2 # Bowel Movements 1 Cardiovascular: RSR Respiratory: clear Abdomen: soft, flat, non-tender, present bowel sounds Extremities: no edema, no tenderness, no cyanosis Laboratory Tests Test 03/15/20 05:30 White Blood Count 6.6 K/UL (4.8-10.8) Red Blood Count 4.04 M/UL (4.20-5.40) L Hemoglobin 11.7 G/DL (12.0-16.0) L Hematocrit 35.8 % (37.0-47.0) L Mean Corpuscular Volume 89 FL (80-99) Mean Corpuscular Hemoglobin 29.0 PG (27.0-31.0) Mean Corpuscular Hemoglobin Concent 32.7 G/DL (32.0-36.0) Red Cell Distribution Width 11.8 % (11.6-14.8) Platelet Count 280 K/UL (150-450) Mean Platelet Volume 6.0 FL (6.5-10.1) L Neutrophils (%) (Auto) 67.7 % (45.0-75.0) Lymphocytes (%) (Auto) 17.7 % (20.0-45.0) L Monocytes (%) (Auto) 11.9 % (1.0-10.0) H Eosinophils (%) (Auto) 2.1 % (0.0-3.0) Basophils (%) (Auto) 0.6 % (0.0-2.0) Sodium Level 135 MMOL/L (136-145) L Potassium Level 3.3 MMOL/L (3.5-5.1) L Chloride Level 102 MMOL/L (98-107) Carbon Dioxide Level 25 MMOL/L (21-32) Anion Gap 8 mmol/L (5-15) Blood Urea Nitrogen 9 mg/dL (7-18) Creatinine 0.9 MG/DL (0.55-1.30) Estimat Glomerular Filtration Rate > 60 mL/min (>60) Glucose Level 94 MG/DL (74-106) Calcium Level 8.4 MG/DL (8.5-10.1) L Iron Level 24 ug/dL (50-175) L Total Iron Binding Capacity 161 ug/dL (250-450) L Percent Iron Saturation 15 % (15-50) Unsaturated Iron Binding 137 ug/dL (112-346) Total Bilirubin 0.3 MG/DL (0.2-1.0) Aspartate Amino Transf (AST/SGOT) 14 U/L (15-37) L Alanine Aminotransferase (ALT/SGPT) 14 U/L (12-78) Alkaline Phosphatase 46 U/L (46-116) Total Protein 5.9 G/DL (6.4-8.2) L Albumin 2.5 G/DL (3.4-5.0) L Globulin 3.4 g/dL Albumin/Globulin Ratio 0.7 (1.0-2.7) L Carcinoembryonic Antigen Pending Plan Problems: (1) Colitis Assessment & Plan: 64-year-old female with 2 days abdominal pain nausea vomiting diarrhea. CT noted. Appendix identified without any inflammation. Does have colitis. On examination right lower quadrant pelvic and left lower quadrant all tender with right a little bit more pronounced. Likely diagnosis colitis potential appendicitis Okay for clear liquid diet trial Pain control Antibiotics We will follow serial abdominal examinations and recommendations thank you for let me participate in patient's care pain both right and left mid abd. based on CT consistent with colitis. atypical for appy and more consistent with colitis plan colonoscopy and egd as per GI (2) Uterine fibroid (3) Appendicitis Assessment & Plan: Liver is unremarkable. The gallbladder is normal. The spleen is unremarkable. Pancreas is normal. There is a small hiatal hernia. Adrenal glands are normal. The kidneys are unremarkable. There is some calcification of the aorta. Retroperitoneum is free of adenopathy. The colon is mostly collapsed making evaluation of the wall the colon difficult. It does appear somewhat indistinct throughout. The appendix is borderline in size but periappendiceal inflammatory changes are not present. There is some stranding in the retroperitoneum posterior to the colon bilaterally. Fluid-filled loops of mid small bowel are noted with some air-fluid levels. A minimal amount of free pelvic fluid is present. The uterus is mildly enlarged. Multiple masses are noted within the uterus. Calcifications are also noted within uterine body. Ovaries are not enlarged. Bladder is collapsed. Degenerative changes are noted in the spine. There is anterolisthesis, grade 1, of L5 on S1. Leoncio Castorena Mar 15, 2020 12:51
--- NOTE | 2020-03-15 14:44 | Internal Med Progress Note ---
Subjective Date of Service: Mar 15, 2020 Physician Name PerryJuan Attending Physician Joni Cooper MD Current Medications Medications (Trade) Dose Ordered Sig/Candie Route PRN Reason Start Time Stop Time Status Last Admin Dose Admin Acetaminophen (Tylenol) 650 mg Q4H PRN ORAL Temp >100.5 03/12/20 18:15 04/11/20 18:14 Al Hydroxide/Mg Hydroxide (Mylanta II) 30 ml Q6H PRN ORAL dyspepsia 03/12/20 18:15 04/11/20 18:14 Ceftriaxone Sodium 1 gm/ Dextrose 55 ml @ 110 mls/hr Q24H IVPB 03/13/20 15:00 03/20/20 14:59 03/14/20 14:20 Dextrose (Dextrose 50%) 25 ml Q30M PRN IV Hypoglycemia 03/12/20 18:15 06/10/20 18:14 Dextrose (Dextrose 50%) 50 ml Q30M PRN IV Hypoglycemia 03/12/20 18:15 06/10/20 18:14 Dextrose/ Electrolytes 1,000 ml @ 75 mls/hr [id number] IV 03/15/20 16:00 04/14/20 15:59 Diphenhydramine HCl (Benadryl) 25 mg Q6H PRN ORAL Itching/Pruritis 03/12/20 18:15 04/11/20 18:14 Famotidine (Pepcid I.v.) 20 mg Q12HR IVP 03/12/20 21:00 04/11/20 20:59 03/15/20 08:21 Heparin Sodium (Porcine) (Heparin 5000 units/ml) 5,000 units EVERY 12 HOURS SUBQ 03/12/20 21:00 04/26/20 20:59 03/15/20 08:23 Iron Sucrose 200 mg/Sodium Chloride 120 ml @ 240 mls/hr ONCE ONCE IV 03/15/20 15:00 03/15/20 15:29 Lorazepam (Ativan) 1 mg Q4H PRN ORAL For Anxiety 03/12/20 18:15 03/19/20 18:14 Metoclopramide HCl (Reglan) 10 mg Q6H PRN IVP severe nausea 03/12/20 18:45 04/11/20 18:44 03/13/20 20:19 Metronidazole (Flagyl) 500 mg Q8HR ORAL 03/13/20 14:15 03/20/20 14:14 03/15/20 05:05 Morphine Sulfate (Morphine Sulfate) 1 mg Q3H PRN IVP Mild Pain (Pain Scale 1-3) 03/12/20 18:15 03/19/20 18:14 Morphine Sulfate (Morphine Sulfate) 2 mg Q4H PRN IVP Moderate Pain (Pain Scale 4-6) 03/12/20 18:15 03/19/20 18:14 03/14/20 19:50 Morphine Sulfate (Morphine Sulfate) 4 mg Q3H PRN IVP Severe Pain (Pain Scale 7-10) 03/12/20 18:15 03/19/20 18:14 Nitroglycerin (Ntg) 0.4 mg Q5M X 3 DOSES PRN SL Prn Chest Pain 03/12/20 18:45 04/11/20 18:44 Ondansetron HCl (Zofran) 4 mg Q6H PRN IVP Nausea & Vomiting 03/12/20 18:15 04/11/20 18:14 03/15/20 11:04 Polyethylene Glycol (Miralax) 238 gm ONCE ORAL 03/15/20 16:00 03/15/20 17:00 Sodium Chloride 1,000 ml @ 100 mls/hr Q10H IVLG 03/12/20 19:03 04/11/20 19:02 03/14/20 23:30 Temazepam (Restoril) 15 mg HSPRN PRN ORAL Insomnia 03/12/20 18:15 03/19/20 18:14 03/13/20 21:32 Allergies: Coded Allergies: No Known Allergies (Unverified , 03/12/20) ROS Limited/Unobtainable: No Constitutional: Reports: no symptoms HEENT: Reports: no symptoms Cardiovascular: Reports: no symptoms Respiratory: Reports: no symptoms Gastrointestinal/Abdominal: Reports: abdominal pain Genitourinary: Reports: no symptoms Neurologic/Psychiatric: Reports: no symptoms Subjective 64 YO F admitted with abdominal pain, nausea and vomiting. Now gastroenteritis/ colitis. Cover for Int Jeremie-Dr Cooper Objective Last Vital Signs Date Time Temp Pulse Resp B/P (MAP) Pulse Ox O2 Delivery O2 Flow Rate FiO2 03/15/20 12:00 97.8 51 16 133/76 (95) 99 03/15/20 09:00 Room Air Laboratory Tests Test 03/15/20 05:30 White Blood Count 6.6 K/UL (4.8-10.8) Red Blood Count 4.04 M/UL (4.20-5.40) L Hemoglobin 11.7 G/DL (12.0-16.0) L Hematocrit 35.8 % (37.0-47.0) L Mean Corpuscular Volume 89 FL (80-99) Mean Corpuscular Hemoglobin 29.0 PG (27.0-31.0) Mean Corpuscular Hemoglobin Concent 32.7 G/DL (32.0-36.0) Red Cell Distribution Width 11.8 % (11.6-14.8) Platelet Count 280 K/UL (150-450) Mean Platelet Volume 6.0 FL (6.5-10.1) L Neutrophils (%) (Auto) 67.7 % (45.0-75.0) Lymphocytes (%) (Auto) 17.7 % (20.0-45.0) L Monocytes (%) (Auto) 11.9 % (1.0-10.0) H Eosinophils (%) (Auto) 2.1 % (0.0-3.0) Basophils (%) (Auto) 0.6 % (0.0-2.0) Sodium Level 135 MMOL/L (136-145) L Potassium Level 3.3 MMOL/L (3.5-5.1) L Chloride Level 102 MMOL/L (98-107) Carbon Dioxide Level 25 MMOL/L (21-32) Anion Gap 8 mmol/L (5-15) Blood Urea Nitrogen 9 mg/dL (7-18) Creatinine 0.9 MG/DL (0.55-1.30) Estimat Glomerular Filtration Rate > 60 mL/min (>60) Glucose Level 94 MG/DL (74-106) Calcium Level 8.4 MG/DL (8.5-10.1) L Iron Level 24 ug/dL (50-175) L Total Iron Binding Capacity 161 ug/dL (250-450) L Percent Iron Saturation 15 % (15-50) Unsaturated Iron Binding 137 ug/dL (112-346) Total Bilirubin 0.3 MG/DL (0.2-1.0) Aspartate Amino Transf (AST/SGOT) 14 U/L (15-37) L Alanine Aminotransferase (ALT/SGPT) 14 U/L (12-78) Alkaline Phosphatase 46 U/L (46-116) Total Protein 5.9 G/DL (6.4-8.2) L Albumin 2.5 G/DL (3.4-5.0) L Globulin 3.4 g/dL Albumin/Globulin Ratio 0.7 (1.0-2.7) L Carcinoembryonic Antigen Pending Microbiology Date/Time Source Procedure Growth Status 03/13/20 16:50 Nasopharynx SARS-CoV-2 RdRp Gene Assay - Final Complete 03/14/20 09:10 Stool Stool Culture Pending Resulted 03/14/20 09:10 Stool Clostridium difficile Toxin Assay - Final Resulted Intake and Output 03/14/20 03/15/20 19:00 07:00 Intake Total 1695 ml 1450 ml Balance 1695 ml 1450 ml Intake Oral 640 ml 350 ml IV Total 1055 ml 1100 ml # Voids 2 2 # Bowel Movements 1 Objective PHYSICAL EXAMINATION: GENERAL: The patient awake, responsive, no acute distress. HEAD AND NECK EXAMINATION: Pupils are reactive to light. Extraocular movements intact. Neck was supple. No JVD. LUNGS: Good air entry. No wheezing or rales. HEART: S1, S2. Regular rhythm. No gallops. ABDOMEN: Soft, nondistended. Tender in the lower quadrant. No rebound tenderness. No fluid shift. EXTREMITIES: No cyanosis, clubbing or edema. NEUROLOGICAL: Cranial nerves II through XII grossly intact. The patient moving all the extremities. RECTAL/GENITOURINARY: Refused and deferred. PSYCHIATRIC: Mood and affect is intact. Assessment/Plan Assessment/Plan ASSESSMENT: 1. Abdominal pain associated with nausea, vomiting and diarrhea 2. Gastroenteritis/colitis. 3. Hypokalemia. 4. History of asthma. 5. Hypothyroidism. 6. Uterine fibroids. PLAN: 1. Admit the patient to surgical unit. 2. Start the patient on broad spectrum antibiotic with Rocephin and Flagyl. 3. continue pain medication as needed and IV hydration 4. Dr. Hall= Pulmonary Critical Care 5. Dr. Wells= Infectious Disease 6. Dr. Leoncio Castorena =General surgery. 7. Code status is Full Code. 8. DVT prophylaxis=heparin subcutaneous. 9. Endoscopy and colonoscopy on 03/16/20 Juan Perry MD Mar 15, 2020 14:44
--- NOTE | 2020-03-15 14:45 | NUR ---
NURSE NOTES: Bradycardia noted since yesterday. HR 50~54. Dr. Perry aware. No new order at this time.
[2020-03-15] MEDS: cefTRIAXone 1 GM in D5W 55 ML IVPB SCH (14:53)
[2020-03-15] MEDS ORDERED: Iron Sucrose 200 MG in NS 110 ML IV ONE (15:00)
[2020-03-15] MEDS: D5 1/2NS w/KCl 20mEq 1,000 ML IV SCH (15:41)
[2020-03-15 16:00] VITALS: BP 144/76
[2020-03-15] MEDS ORDERED: Polyethylene Glycol 238gm bottle ORAL SCH (16:00)
[2020-03-15] MEDS: Metoclopramide 10mg/2ml Inj IVP PRN (16:34)
--- NOTE | 2020-03-15 18:49 | Pulmonology Progress Note ---
Subjective ROS Limited/Unobtainable: No Constitutional: Reports: no symptoms HEENT: Repors: no symptoms Allergies: Coded Allergies: No Known Allergies (Unverified , 03/12/20) Objective Last 24 Hour Vital Signs Date Time Temp Pulse Resp B/P (MAP) Pulse Ox O2 Delivery O2 Flow Rate FiO2 03/15/20 16:00 98.1 49 16 144/76 (98) 99 03/15/20 12:00 97.8 51 16 133/76 (95) 99 03/15/20 09:00 Room Air 03/15/20 08:00 97.9 54 16 128/67 (87) 99 03/15/20 04:00 97.9 51 18 114/66 (82) 96 03/15/20 00:00 98.2 52 18 125/73 (90) 97 03/14/20 21:00 Room Air 03/14/20 20:00 98.0 54 18 138/75 (96) 95 Intake and Output 03/14/20 03/15/20 19:00 07:00 Intake Total 1695 ml 1450 ml Balance 1695 ml 1450 ml Intake Oral 640 ml 350 ml IV Total 1055 ml 1100 ml # Voids 2 2 # Bowel Movements 1 General Appearance: WD/WN HEENT: normocephalic, atraumatic Respiratory: chest wall non-tender, lungs clear Cardiovascular: normal peripheral pulses, normal rate Abdomen: normal bowel sounds, soft, non tender, no organomegaly Genitourinary: normal external genitalia Extremities: no clubbing Neurologic: radio maintainer II-XII grossly normal, abnormal gait Microbiology Date/Time Source Procedure Growth Status 03/13/20 16:50 Nasopharynx SARS-CoV-2 RdRp Gene Assay - Final Complete 03/14/20 09:10 Stool Stool Culture Pending Resulted 03/14/20 09:10 Stool Clostridium difficile Toxin Assay - Final Resulted Laboratory Tests 03/15/20 05:30: White Blood Count 6.6, Red Blood Count 4.04L, Hemoglobin 11.7L, Hematocrit 35.8L , Mean Corpuscular Volume 89, Mean Corpuscular Hemoglobin 29.0, Mean Corpuscular Hemoglobin Concent 32.7, Red Cell Distribution Width 11.8, Platelet Count 280, Mean Platelet Volume 6.0L, Neutrophils (%) (Auto) 67.7, Lymphocytes ( %) (Auto) 17.7L, Monocytes (%) (Auto) 11.9H, Eosinophils (%) (Auto) 2.1, Basophils (%) (Auto) 0.6, Sodium Level 135L, Potassium Level 3.3L, Chloride Level 102, Carbon Dioxide Level 25, Anion Gap 8, Blood Urea Nitrogen 9, Creatinine 0.9, Estimat Glomerular Filtration Rate > 60, Glucose Level 94, Calcium Level 8.4L, Iron Level 24L, Total Iron Binding Capacity 161L, Percent Iron Saturation 15, Unsaturated Iron Binding 137, Total Bilirubin 0.3, Aspartate Amino Transf (AST/SGOT) 14L, Alanine Aminotransferase (ALT/SGPT) 14, Alkaline Phosphatase 46, Total Protein 5.9L, Albumin 2.5L, Globulin 3.4, Albumin /Globulin Ratio 0.7L, Carcinoembryonic Antigen [Pending] Current Medications Medications (Trade) Dose Ordered Sig/Candie Route PRN Reason Start Time Stop Time Status Last Admin Dose Admin Acetaminophen (Tylenol) 650 mg Q4H PRN ORAL Temp >100.5 03/12/20 18:15 04/11/20 18:14 Al Hydroxide/Mg Hydroxide (Mylanta II) 30 ml Q6H PRN ORAL dyspepsia 03/12/20 18:15 04/11/20 18:14 Ceftriaxone Sodium 1 gm/ Dextrose 55 ml @ 110 mls/hr Q24H IVPB 03/13/20 15:00 03/20/20 14:59 03/15/20 14:53 Dextrose (Dextrose 50%) 25 ml Q30M PRN IV Hypoglycemia 03/12/20 18:15 06/10/20 18:14 Dextrose (Dextrose 50%) 50 ml Q30M PRN IV Hypoglycemia 03/12/20 18:15 06/10/20 18:14 Dextrose/ Electrolytes 1,000 ml @ 75 mls/hr [id number] IV 03/15/20 16:00 04/14/20 15:59 03/15/20 15:41 Diphenhydramine HCl (Benadryl) 25 mg Q6H PRN ORAL Itching/Pruritis 03/12/20 18:15 04/11/20 18:14 Famotidine (Pepcid I.v.) 20 mg Q12HR IVP 03/12/20 21:00 04/11/20 20:59 03/15/20 08:21 Heparin Sodium (Porcine) (Heparin 5000 units/ml) 5,000 units EVERY 12 HOURS SUBQ 03/12/20 21:00 04/26/20 20:59 03/15/20 08:23 Lorazepam (Ativan) 1 mg Q4H PRN ORAL For Anxiety 03/12/20 18:15 03/19/20 18:14 Metoclopramide HCl (Reglan) 10 mg Q6H PRN IVP severe nausea 03/12/20 18:45 04/11/20 18:44 03/15/20 16:34 Metronidazole (Flagyl) 500 mg Q8HR ORAL 03/13/20 14:15 03/20/20 14:14 03/15/20 14:00 Morphine Sulfate (Morphine Sulfate) 1 mg Q3H PRN IVP Mild Pain (Pain Scale 1-3) 03/12/20 18:15 03/19/20 18:14 Morphine Sulfate (Morphine Sulfate) 2 mg Q4H PRN IVP Moderate Pain (Pain Scale 4-6) 03/12/20 18:15 03/19/20 18:14 03/14/20 19:50 Morphine Sulfate (Morphine Sulfate) 4 mg Q3H PRN IVP Severe Pain (Pain Scale 7-10) 03/12/20 18:15 03/19/20 18:14 Nitroglycerin (Ntg) 0.4 mg Q5M X 3 DOSES PRN SL Prn Chest Pain 03/12/20 18:45 04/11/20 18:44 Ondansetron HCl (Zofran) 4 mg Q6H PRN IVP Nausea & Vomiting 03/12/20 18:15 04/11/20 18:14 03/15/20 11:04 Temazepam (Restoril) 15 mg HSPRN PRN ORAL Insomnia 03/12/20 18:15 03/19/20 18:14 03/13/20 21:32 Assessment/Plan Problems: (1) Colitis (2) History of asthma (3) Hypothyroidism Assessment/Plan doing better all cultures reviewed advance diet as tolerated IV fluids check electrolytes symptomatic treatment dvt prophylaxis Jihan Hall MD Mar 15, 2020 18:49
--- NOTE | 2020-03-15 19:26 | NUR ---
NURSE NOTES: Received report from SHANE Lundberg. Rounding is done. Patient is a/ox4 and denied pain at this time. Educated regarding Midnight diet which is NPO for tomorrow procedure and patient verbalized her understanding. No any distress noted at this time. Breathing is even and unlabored on RA. IV site is intact and IV fluid is running. Bed is on alarm, locked, and lowest position. Call light within reach. Will continue to monitor.
--- NOTE | 2020-03-15 19:43 | NUR ---
NURSE HAND-OFF: Important Events on Shift:GI procedure tomorrow Patient Status: stable Diet: NPO Pending Orders: N Pending Results/Labs: Y Pending MD notification: N Latest Vital Signs: Temperature 98.1 , Pulse 49 , B/P 144 /76 , Respiratory Rate 16 , O2 SAT 99 , Room Air, O2 Flow Rate . Vital Sign Comment: Bradycardia Latest Delarosa Fall Score: 35 Fall Risk: Medium Risk Safety Measures: Call light Within Reach, Bed Alarm , Side Rails Side Rails x2, Bed position Low and Locked. Fall Precautions: Yellow Socks Patient Fall Education Report given to . Addendum: 03/15/20 at 1946 by Yessi Lundberg RN Report given to SHANE Haines
[2020-03-15 20:00] VITALS: BP 145/72
[2020-03-16] VITALS (7 sets, daily range): BP systolic 110–131; BP diastolic 71–80
[2020-03-16] MEDS: metroNIDAZOLE 500mg tab ORAL SCH (05:21)
[2020-03-16] MEDS: D5 1/2NS w/KCl 20mEq 1,000 ML IV SCH (05:23)
[2020-03-16] MEDS ORDERED: Lidocaine 1% MPF 10mg/ml 5ml ONE (06:30)
[2020-03-16] MEDS ORDERED: Atropine Sulfate 0.4mg/ml inj ONE (06:30)
[2020-03-16] MEDS ORDERED: Atropine Inj 1mg/10ml Syr IV PRN (06:30)
[2020-03-16] MEDS ORDERED: Midazolam 2mg/2ml Inj IVP PRN (06:30)
[2020-03-16] MEDS ORDERED: DiphenhydrAMINE 50mg/ml Inj IVP PRN (06:30)
[2020-03-16] MEDS ORDERED: fentaNYL 100 mcg/2 mL IV PRN (06:30)
--- NOTE | 2020-03-16 06:39 | Anethesia Preoperative Eval ---
Anesthesia Pre-op PMH/ROS General Date of Evaluation: Mar 16, 2020 Time of Evaluation: 06:31 Anesthesiologist: chele ASA Score: ASA 3 Mallampati Score Class I : Soft palate, uvula, fauces, pillars visible Class II: Soft palate, uvula, fauces visible Class III: Soft palate, base of uvula visible Class IV: Only hard plate visible Mallampati Classification: Class II Surgeon: harsha Diagnosis: colitis Surgical Procedure: egd/colonoscopy Anesthesia History: none Social History: alcohol use Family History: no anesthesia problems Allergies: Coded Allergies: No Known Allergies (Unverified , 03/12/20) Medications: see eMAR Patient NPO?: Yes Past Medical History Cardiovascular: Reports: arrhythmia - bradycardia Pulmonary: Reports: asthma Gastrointestinal/Genitourinary: Reports: other - colitis, appendicitis, uterine fibroids Hematology/Immune: Reports: anemia Anesthesia Pre-op Phys. Exam Physician Exam Last Vital Signs Date Time Temp Pulse Resp B/P (MAP) Pulse Ox O2 Delivery O2 Flow Rate FiO2 03/16/20 04:00 97.5 52 18 126/73 (90) 99 03/15/20 21:00 Room Air Constitutional: NAD Neurologic: CN 2-12 intact Cardiovascular: other Respiratory: CTA Gastrointestinal: S/NT/ND Airway Exam Mallampati Score: Class II MO: limited Neck: flexible TMD: 2fb ROM: limited Anesthesia Pre-op A/P Labs Microbiology Date/Time Source Procedure Growth Status 03/13/20 16:50 Nasopharynx SARS-CoV-2 RdRp Gene Assay - Final Complete 03/14/20 09:10 Stool Stool Culture Pending Resulted 03/14/20 09:10 Stool Clostridium difficile Toxin Assay - Final Resulted Labs Test 03/13/20 09:10 03/14/20 05:15 03/14/20 09:10 03/15/20 05:30 White Blood Count 9.3 K/UL (4.8-10.8) 6.6 K/UL (4.8-10.8) Red Blood Count 4.12 M/UL (4.20-5.40) 4.04 M/UL (4.20-5.40) Hemoglobin 11.9 G/DL (12.0-16.0) 11.7 G/DL (12.0-16.0) Hematocrit 36.6 % (37.0-47.0) 35.8 % (37.0-47.0) Mean Corpuscular Volume 89 FL (80-99) 89 FL (80-99) Mean Corpuscular Hemoglobin 28.8 PG (27.0-31.0) 29.0 PG (27.0-31.0) Mean Corpuscular Hemoglobin Concent 32.4 G/DL (32.0-36.0) 32.7 G/DL (32.0-36.0) Red Cell Distribution Width 12.1 % (11.6-14.8) 11.8 % (11.6-14.8) Platelet Count 268 K/UL (150-450) 280 K/UL (150-450) Mean Platelet Volume 5.9 FL (6.5-10.1) 6.0 FL (6.5-10.1) Neutrophils (%) (Auto) 81.7 % (45.0-75.0) 67.7 % (45.0-75.0) Lymphocytes (%) (Auto) 7.7 % (20.0-45.0) 17.7 % (20.0-45.0) Monocytes (%) (Auto) 9.8 % (1.0-10.0) 11.9 % (1.0-10.0) Eosinophils (%) (Auto) 0.2 % (0.0-3.0) 2.1 % (0.0-3.0) Basophils (%) (Auto) 0.6 % (0.0-2.0) 0.6 % (0.0-2.0) Erythrocyte Sedimentation Rate 68 MM/HR (0-30) Sodium Level 133 MMOL/L (136-145) 135 MMOL/L (136-145) Potassium Level 3.7 MMOL/L (3.5-5.1) 3.3 MMOL/L (3.5-5.1) Chloride Level 100 MMOL/L (98-107) 102 MMOL/L (98-107) Carbon Dioxide Level 27 MMOL/L (21-32) 25 MMOL/L (21-32) Anion Gap 6 mmol/L (5-15) 8 mmol/L (5-15) Blood Urea Nitrogen 12 mg/dL (7-18) 9 mg/dL (7-18) Creatinine 0.9 MG/DL (0.55-1.30) 0.9 MG/DL (0.55-1.30) Estimat Glomerular Filtration Rate > 60 mL/min (>60) > 60 mL/min (>60) Glucose Level 104 MG/DL (74-106) 94 MG/DL (74-106) Lactic Acid Level 1.10 mmol/L (0.4-2.0) Calcium Level 8.6 MG/DL (8.5-10.1) 8.4 MG/DL (8.5-10.1) Total Bilirubin 0.6 MG/DL (0.2-1.0) 0.3 MG/DL (0.2-1.0) Aspartate Amino Transf (AST/SGOT) 15 U/L (15-37) 14 U/L (15-37) Alanine Aminotransferase (ALT/SGPT) 15 U/L (12-78) 14 U/L (12-78) Alkaline Phosphatase 49 U/L (46-116) 46 U/L (46-116) C-Reactive Protein, Quantitative 20.2 mg/dL (0.00-0.90) Total Protein 6.5 G/DL (6.4-8.2) 5.9 G/DL (6.4-8.2) Albumin 2.7 G/DL (3.4-5.0) 2.5 G/DL (3.4-5.0) Globulin 3.8 g/dL 3.4 g/dL Albumin/Globulin Ratio 0.7 (1.0-2.7) 0.7 (1.0-2.7) HIV (1&2) Antibody Rapid Negative (NEGATIVE) Iron Level 24 ug/dL (50-175) Total Iron Binding Capacity 161 ug/dL (250-450) Percent Iron Saturation 15 % (15-50) Unsaturated Iron Binding 137 ug/dL (112-346) Risk Assessment & Plan Assessment: asa3 Plan: mac Status Change Before Surgery: No Pre-Antibiotics Drug: Bushra Solis MD Mar 16, 2020 06:39
--- NOTE | 2020-03-16 06:44 | NUR ---
NURSE NOTES: Patient left the unit for procedure with stable condition.
--- NOTE | 2020-03-16 06:47 | Pre-Procedure Note/Attestation ---
Pre-Procedure Note/Attestation Complete Prior to Procedure Planned Procedure: not applicable Procedure Narrative: esophagogastroduodenoscopy and colonoscopy Indications for Procedure Pre-Operative Diagnosis: anemia, colitis Attestation I attest that I discussed the nature of the procedure; its benefits; risks and complications; and alternatives (and the risks and benefits of such alternatives ), prior to the procedure, with the patient (or the patient's legal community representative). I attest that, if there was a reasonable possibility of needing a blood transfusion, the patient (or the patient's legal community representative) was given the [facility] standardized written summary, pursuant to the [place] Blood Safety Act ([place] Health and Safety Code # 1645, as amended). I attest that I re-evaluated the patient just prior to the surgery and that there has been no change in the patient's H&P, except as documented below: Travis Avalos MD Mar 16, 2020 06:46
[2020-03-16] MEDS ORDERED: NS 500ML IVPB ONE (06:55)
--- NOTE | 2020-03-16 07:02 | Endoscopy Procedure Note ---
Endoscopy Procedure Note General Indication for Procedure: anemia, colitis Procedures Performed: EGD, colonoscopy Operative Findings/Diagnosis: gastritis, hemorrhoids Specimen: yes Pt Tolerated Procedure Well: Yes Estimated Blood Loss: none Anesthesia Anesthesiologist: brian Anesthesia: MAC Inserted Devices Implant(s) used?: No Quality Quality of Bowel Preparation: Good Did scope reach the cecum?: Yes Was there any complications?: No GI Core Measures 50 yrs or older w/o bx or poly: Not Applicable 10yrs. F/U recommended: Not Applicable Travis Avalos MD Mar 16, 2020 07:02
[2020-03-16 07:14] LABS: ANION GAP 7 mmol/L (5-15); BLOOD UREA NITROGEN 5 mg/dL (7-18); CALCIUM 8.7 MG/DL (8.5-10.1); CARBON DIOXIDE 26 MMOL/L (21-32); CHLORIDE 106 MMOL/L (98-107); CREATININE 0.9 MG/DL (0.55-1.30); POTASSIUM 3.6 MMOL/L (3.5-5.1); SODIUM 138 MMOL/L (136-145)
[2020-03-16 07:17] LABS: BASOPHILS % (AUTO) 1.5 % (0.0-2.0); EOSINOPHILS % (AUTO) 3.2 % (0.0-3.0); HEMATOCRIT 37.4 % (37.0-47.0); HEMOGLOBIN 12.2 G/DL (12.0-16.0); LYMPHOCYTES % (AUTO) 22.6 % (20.0-45.0); MEAN CORPUSCULAR VOLUME 89 FL (80-99); MONOCYTES % (AUTO) 11.1 % (1.0-10.0); NEUTROPHILS % (AUTO) 61.7 % (45.0-75.0); PLATELET COUNT 326 K/UL (150-450); RED BLOOD COUNT 4.21 M/UL (4.20-5.40); RED CELL DISTRIBUTION WIDTH 12.1 % (11.6-14.8); WHITE BLOOD COUNT 6.1 K/UL (4.8-10.8)
--- NOTE | 2020-03-16 07:20 | NUR ---
NURSE HAND-OFF: Important Events on Shift:PATEINT LEFT THE UNIT AT 0644 FOR PROCEDURE Patient Status: Diet: Pending Orders: Pending Results/Labs: Pending MD notification: Latest Vital Signs: Temperature 97.5 , Pulse 52 , B/P 126 /73 , Respiratory Rate 18 , O2 SAT 99 , Room Air, O2 Flow Rate . Vital Sign Comment: Latest Delarosa Fall Score: 35 Fall Risk: Medium Risk Safety Measures: Call light Within Reach, Bed Alarm , Side Rails Side Rails x2, Bed position Low and Locked. Fall Precautions: Yellow Socks Patient Fall Education Report given to .
--- NOTE | 2020-03-16 07:21 | NUR ---
NURSE NOTES: Received report from SHANE Haines. Pt off the unit for GI procedure.
--- NOTE | 2020-03-16 07:45 | NUR ---
NURSE NOTES: Pt came back to unit from GI procedure with stable condition. No c/o pain or discomfort. Provided breakfast. Bed in low position, locked. call light within reach. Will continue to monitor.
[2020-03-16] MEDS: Heparin 5000 units/ml inj SUBQ SCH (08:31)
--- NOTE | 2020-03-16 08:36 | Immediate Post-Op Evaluation ---
Immediate Post-Op Evalulation Immediate Post-Op Evalulation Procedure: egd/colonoscopy w/bx Date of Evaluation: Mar 16, 2020 Time of Evaluation: 07:31 IV Fluids: 200ml 0.9ns Blood Products: none Estimated Blood Loss: negligible Blood Pressure Systolic: 110 Blood Pressure Diastolic: 72 Pulse Rate: 68 Respiratory Rate: 18 O2 Sat by Pulse Oximetry: 100 Temperature (Fahrenheit): 97.6 Pain Score (1-10): 0 Nausea: No Vomiting: No Complications none Patient Status: awake, reacts, patent Hydration Status: adequate Drug: Bushra Solis MD Mar 16, 2020 08:36
--- NOTE | 2020-03-16 08:36 | 48 Hour Post Anesthesia Eval ---
Post Anesthesia Evaluation Procedure: egd/colonoscopy w/bx Date of Evaluation: Mar 16, 2020 Time of Evaluation: 07:33 Blood Pressure Systolic: 117 0: 79 Pulse Rate: 56 Respiratory Rate: 18 Temperature (Fahrenheit): 97.6 O2 Sat by Pulse Oximetry: 100 Airway: patent Nausea: No Vomiting: No Pain Intensity: 0 Cardiopulmonary Status: stable Mental Status/LOC: patient returned to baseline Post-Anesthesia Complications: none Follow-up care needed: N/A Bushra Rodriges MD Mar 16, 2020 08:36
--- NOTE | 2020-03-16 10:07 | Infectious Diseases Prog Note ---
Assessment/Plan COVID 19 neg x2 (03/12, 03/13 rapid COVID PCR) Afebrile Leukocytosis, improving -u/a neg -CXR: Possible calcified nodes in the pulmonary lucretia and aortopulmonary window. Abdominal pain- enterocolitis- r/o infectious ?appendicitis -CT abd/p: Some indistinctness of the colonic wall with some retroperitoneal stranding bilaterally posterior to the colon. Possibility of a colitis cannot be excluded and should be correlated clinically. Hiatal hernia. Uterine fibroids. Minimal fluid in the cul-de-sac. Degenerative change in the spine. Anterolisthesis of L5 on S1, grade 1. Fluid-filled loops of mid small bowel with some air-fluid levels, nonspecific. This does not appear obstructive and could represent enteritis. UDS+ THC HIV screen neg; VL p Asthma Groin hernia s/p repair 2yrs ago Plan: -Continue Ceftriaxone #3 and Flagyl #3 while remains in house -Upon discharge, can transition pt to ciprofloxacin 500mg PO BID & metronidazole 500mg PO TID to complete 7 day course for possible enterocolitis as cause of sx - 03/13/20 SP Zosyn #2 -Monitor CBC/CMP, temperatures -F/u stool cx, ova +p -F/u screening HIV VL Thank you for this consultation. Will continue to follow along with you. Subjective Allergies: Coded Allergies: No Known Allergies (Unverified , 03/12/20) AF Feeling better, abd pain is gone Had first meal this morning, vomited after Doesn't like that there is no dx for her issues Objective Last 24 Hour Vital Signs Date Time Temp Pulse Resp B/P (MAP) Pulse Ox O2 Delivery O2 Flow Rate FiO2 03/16/20 09:03 56 18 100 03/16/20 09:00 Room Air 03/16/20 08:36 68 18 100 03/16/20 07:39 97.8 56 23 131/80 100 Room Air 03/16/20 07:29 56 17 117/79 100 Nasal Cannula 3 03/16/20 07:24 57 23 111/74 100 Nasal Cannula 3 03/16/20 07:19 97.6 58 20 110/72 100 Nasal Cannula 3 03/16/20 04:00 97.5 52 18 126/73 (90) 99 03/16/20 00:00 98.0 58 18 130/71 (90) 99 03/15/20 21:00 Room Air 03/15/20 20:00 97.5 57 18 145/72 (96) 99 03/15/20 16:00 98.1 49 16 144/76 (98) 99 03/15/20 12:00 97.8 51 16 133/76 (95) 99 Height (Feet): 5 Height (Inches): 4.00 Weight (Pounds): 115 Gen: Pleasant older woman in NAD Pulm: Breathing comfortably on RA Abd: Obese, soft, NTND Ext; No c/c/e Microbiology Date/Time Source Procedure Growth Status 03/13/20 16:50 Nasopharynx SARS-CoV-2 RdRp Gene Assay - Final Complete 03/14/20 09:10 Stool Stool Culture - Preliminary NORMAL FECAL KUMAR. Resulted 03/14/20 09:10 Stool Clostridium difficile Toxin Assay - Final Resulted Laboratory Tests Test 03/16/20 05:35 White Blood Count 6.1 K/UL (4.8-10.8) Red Blood Count 4.21 M/UL (4.20-5.40) Hemoglobin 12.2 G/DL (12.0-16.0) Hematocrit 37.4 % (37.0-47.0) Mean Corpuscular Volume 89 FL (80-99) Mean Corpuscular Hemoglobin 29.1 PG (27.0-31.0) Mean Corpuscular Hemoglobin Concent 32.7 G/DL (32.0-36.0) Red Cell Distribution Width 12.1 % (11.6-14.8) Platelet Count 326 K/UL (150-450) Mean Platelet Volume 5.5 FL (6.5-10.1) L Neutrophils (%) (Auto) 61.7 % (45.0-75.0) Lymphocytes (%) (Auto) 22.6 % (20.0-45.0) Monocytes (%) (Auto) 11.1 % (1.0-10.0) H Eosinophils (%) (Auto) 3.2 % (0.0-3.0) H Basophils (%) (Auto) 1.5 % (0.0-2.0) Sodium Level 138 MMOL/L (136-145) Potassium Level 3.6 MMOL/L (3.5-5.1) Chloride Level 106 MMOL/L (98-107) Carbon Dioxide Level 26 MMOL/L (21-32) Anion Gap 7 mmol/L (5-15) Blood Urea Nitrogen 5 mg/dL (7-18) L Creatinine 0.9 MG/DL (0.55-1.30) Estimat Glomerular Filtration Rate > 60 mL/min (>60) Glucose Level 123 MG/DL (74-106) H Calcium Level 8.7 MG/DL (8.5-10.1) Current Medications Medications (Trade) Dose Ordered Sig/Candie Route PRN Reason Start Time Stop Time Status Last Admin Dose Admin Acetaminophen (Tylenol) 650 mg Q4H PRN ORAL Temp >100.5 03/12/20 18:15 04/11/20 18:14 Al Hydroxide/Mg Hydroxide (Mylanta II) 30 ml Q6H PRN ORAL dyspepsia 03/12/20 18:15 04/11/20 18:14 Ceftriaxone Sodium 1 gm/ Dextrose 55 ml @ 110 mls/hr Q24H IVPB 03/13/20 15:00 03/20/20 14:59 03/15/20 14:53 Dextrose (Dextrose 50%) 25 ml Q30M PRN IV Hypoglycemia 03/12/20 18:15 06/10/20 18:14 Dextrose (Dextrose 50%) 50 ml Q30M PRN IV Hypoglycemia 03/12/20 18:15 06/10/20 18:14 Dextrose/ Electrolytes 1,000 ml @ 75 mls/hr [id number] IV 03/15/20 16:00 04/14/20 15:59 03/16/20 05:23 Diphenhydramine HCl (Benadryl) 25 mg Q6H PRN ORAL Itching/Pruritis 03/12/20 18:15 04/11/20 18:14 Famotidine (Pepcid I.v.) 20 mg Q12HR IVP 03/12/20 21:00 04/11/20 20:59 03/16/20 08:31 Heparin Sodium (Porcine) (Heparin 5000 units/ml) 5,000 units EVERY 12 HOURS SUBQ 03/12/20 21:00 04/26/20 20:59 03/15/20 08:23 Lorazepam (Ativan) 1 mg Q4H PRN ORAL For Anxiety 03/12/20 18:15 03/19/20 18:14 Metoclopramide HCl (Reglan) 10 mg Q6H PRN IVP severe nausea 03/12/20 18:45 04/11/20 18:44 03/15/20 16:34 Metronidazole (Flagyl) 500 mg Q8HR ORAL 03/13/20 14:15 03/20/20 14:14 03/15/20 21:37 Morphine Sulfate (Morphine Sulfate) 1 mg Q3H PRN IVP Mild Pain (Pain Scale 1-3) 03/12/20 18:15 03/19/20 18:14 Morphine Sulfate (Morphine Sulfate) 2 mg Q4H PRN IVP Moderate Pain (Pain Scale 4-6) 03/12/20 18:15 03/19/20 18:14 03/14/20 19:50 Morphine Sulfate (Morphine Sulfate) 4 mg Q3H PRN IVP Severe Pain (Pain Scale 7-10) 03/12/20 18:15 03/19/20 18:14 Nitroglycerin (Ntg) 0.4 mg Q5M X 3 DOSES PRN SL Prn Chest Pain 03/12/20 18:45 04/11/20 18:44 Ondansetron HCl (Zofran) 4 mg Q6H PRN IVP Nausea & Vomiting 03/12/20 18:15 04/11/20 18:14 03/15/20 11:04 Temazepam (Restoril) 15 mg HSPRN PRN ORAL Insomnia 03/12/20 18:15 03/19/20 18:14 03/15/20 21:37 Lien Ferrari M.D. Mar 16, 2020 10:07
--- NOTE | 2020-03-16 11:52 | Pulmonology Progress Note ---
Subjective ROS Limited/Unobtainable: No Constitutional: Reports: no symptoms HEENT: Repors: no symptoms Respiratory: Reports: no symptoms Allergies: Coded Allergies: No Known Allergies (Unverified , 03/12/20) Objective Last 24 Hour Vital Signs Date Time Temp Pulse Resp B/P (MAP) Pulse Ox O2 Delivery O2 Flow Rate FiO2 03/16/20 09:03 56 18 100 03/16/20 09:00 Room Air 03/16/20 08:36 68 18 100 03/16/20 07:39 97.8 56 23 131/80 100 Room Air 03/16/20 07:29 56 17 117/79 100 Nasal Cannula 3 03/16/20 07:24 57 23 111/74 100 Nasal Cannula 3 03/16/20 07:19 97.6 58 20 110/72 100 Nasal Cannula 3 03/16/20 04:00 97.5 52 18 126/73 (90) 99 03/16/20 00:00 98.0 58 18 130/71 (90) 99 03/15/20 21:00 Room Air 03/15/20 20:00 97.5 57 18 145/72 (96) 99 03/15/20 16:00 98.1 49 16 144/76 (98) 99 03/15/20 12:00 97.8 51 16 133/76 (95) 99 Intake and Output 03/15/20 03/16/20 19:00 07:00 Intake Total 1065 ml Balance 1065 ml Intake Oral 240 ml IV Total 825 ml # Voids 5 3 General Appearance: WD/WN HEENT: normocephalic, atraumatic Respiratory: chest wall non-tender, lungs clear Cardiovascular: normal peripheral pulses, normal rate Abdomen: normal bowel sounds, soft, non tender, no organomegaly Genitourinary: normal external genitalia Extremities: no clubbing Neurologic: modeling agent II-XII grossly normal, abnormal gait Microbiology Date/Time Source Procedure Growth Status 03/13/20 16:50 Nasopharynx SARS-CoV-2 RdRp Gene Assay - Final Complete 03/14/20 09:10 Stool Stool Culture - Preliminary NORMAL FECAL KUMAR. Resulted 03/14/20 09:10 Stool Clostridium difficile Toxin Assay - Final Resulted Laboratory Tests 03/16/20 05:35: White Blood Count 6.1, Red Blood Count 4.21, Hemoglobin 12.2, Hematocrit 37.4, Mean Corpuscular Volume 89, Mean Corpuscular Hemoglobin 29.1, Mean Corpuscular Hemoglobin Concent 32.7, Red Cell Distribution Width 12.1, Platelet Count 326, Mean Platelet Volume 5.5L, Neutrophils (%) (Auto) 61.7, Lymphocytes (%) (Auto) 22.6, Monocytes (%) (Auto) 11.1H, Eosinophils (%) (Auto) 3.2H, Basophils (%) ( Auto) 1.5, Sodium Level 138, Potassium Level 3.6, Chloride Level 106, Carbon Dioxide Level 26, Anion Gap 7, Blood Urea Nitrogen 5L, Creatinine 0.9, Estimat Glomerular Filtration Rate > 60, Glucose Level 123H, Calcium Level 8.7 Current Medications Medications (Trade) Dose Ordered Sig/Candie Route PRN Reason Start Time Stop Time Status Last Admin Dose Admin Acetaminophen (Tylenol) 650 mg Q4H PRN ORAL Temp >100.5 03/12/20 18:15 04/11/20 18:14 Al Hydroxide/Mg Hydroxide (Mylanta II) 30 ml Q6H PRN ORAL dyspepsia 03/12/20 18:15 04/11/20 18:14 Ceftriaxone Sodium 1 gm/ Dextrose 55 ml @ 110 mls/hr Q24H IVPB 03/13/20 15:00 03/20/20 14:59 03/15/20 14:53 Dextrose (Dextrose 50%) 25 ml Q30M PRN IV Hypoglycemia 03/12/20 18:15 06/10/20 18:14 Dextrose (Dextrose 50%) 50 ml Q30M PRN IV Hypoglycemia 03/12/20 18:15 06/10/20 18:14 Dextrose/ Electrolytes 1,000 ml @ 75 mls/hr [id number] IV 03/15/20 16:00 04/14/20 15:59 03/16/20 05:23 Diphenhydramine HCl (Benadryl) 25 mg Q6H PRN ORAL Itching/Pruritis 03/12/20 18:15 04/11/20 18:14 Famotidine (Pepcid I.v.) 20 mg Q12HR IVP 03/12/20 21:00 04/11/20 20:59 03/16/20 08:31 Heparin Sodium (Porcine) (Heparin 5000 units/ml) 5,000 units EVERY 12 HOURS SUBQ 03/12/20 21:00 04/26/20 20:59 03/15/20 08:23 Lorazepam (Ativan) 1 mg Q4H PRN ORAL For Anxiety 03/12/20 18:15 03/19/20 18:14 Metoclopramide HCl (Reglan) 10 mg Q6H PRN IVP severe nausea 03/12/20 18:45 04/11/20 18:44 03/15/20 16:34 Metronidazole (Flagyl) 500 mg Q8HR ORAL 03/13/20 14:15 03/20/20 14:14 03/15/20 21:37 Morphine Sulfate (Morphine Sulfate) 1 mg Q3H PRN IVP Mild Pain (Pain Scale 1-3) 03/12/20 18:15 03/19/20 18:14 Morphine Sulfate (Morphine Sulfate) 2 mg Q4H PRN IVP Moderate Pain (Pain Scale 4-6) 03/12/20 18:15 03/19/20 18:14 03/14/20 19:50 Morphine Sulfate (Morphine Sulfate) 4 mg Q3H PRN IVP Severe Pain (Pain Scale 7-10) 03/12/20 18:15 03/19/20 18:14 Nitroglycerin (Ntg) 0.4 mg Q5M X 3 DOSES PRN SL Prn Chest Pain 03/12/20 18:45 04/11/20 18:44 Ondansetron HCl (Zofran) 4 mg Q6H PRN IVP Nausea & Vomiting 03/12/20 18:15 04/11/20 18:14 03/15/20 11:04 Temazepam (Restoril) 15 mg HSPRN PRN ORAL Insomnia 03/12/20 18:15 03/19/20 18:14 03/15/20 21:37 Assessment/Plan Problems: (1) Colitis (2) History of asthma (3) Hypothyroidism Assessment/Plan EGD and colonoscopy done, showing gastritis, diverticulosis and one polyp was removed doing better all cultures reviewed advance diet as tolerated IV fluids check electrolytes symptomatic treatment dvt prophylaxis Jihan Hall MD Mar 16, 2020 11:52
[2020-03-16] MEDS ORDERED: FLAGYL500 MG ORAL (11:55)
[2020-03-16] MEDS ORDERED: CIPRO500 MG/51 PO (11:55)
--- NOTE | 2020-03-16 13:15 | Procedure Note ---
DATE OF PROCEDURE: 03/16/2020 SURGEON: Travis Avaols MD. REFERRING PHYSICIAN: Joni Cooper MD. PROCEDURES: 1. Upper endoscopy with biopsy. 2. Colonoscopy with biopsy. ANESTHESIA: Per Dr. Peck. INSTRUMENT: Olympus adult flexible upper endoscope and colonoscope. INDICATIONS: Colitis based on the CT scan and anemia. REASON FOR PROCEDURE: The procedure, risks, benefits, and possible consequences, including hemorrhage, aspiration, perforation and infection, and alternative treatments, were explained to the patient/legal guardian by Dr. Travis Avalos and the patient/legal guardian understood and accepted these risks. PROCEDURE IN DETAIL: After informed consent was obtained and the patient was adequately sedated, Olympus upper endoscope was advanced from mouth into second portion of the duodenum and retroflexion was performed in the stomach. The patient has evidence of diffuse gastritis. Random biopsy from antrum was obtained to rule out H. pylori infection. Otherwise, the rest of upper endoscopic examination grossly looked within normal limits. At this time, the upper endoscope was retrieved and the patient was turned over for colonoscopy. First, rectal exam was performed, which was positive for internal and external hemorrhoids. Then, the scope was advanced from rectum into the cecum, then subsequently into the terminal ileum. Quality of prep was very good. The patient had one diminutive polyp in the sigmoid colon, removed with cold biopsy forceps technique. One single diverticula was seen in the sigmoid colon. Retroflexion of rectum showed evidence of medium-sized internal hemorrhoids. SUMMARY OF FINDINGS: 1. Gastritis, status post biopsy. 2. One colonic polyp, removed. See above for details. 3. One diverticula in the left colon. 4. Internal and external hemorrhoids. RECOMMENDATIONS: 1. Resume diet. 2. Follow pathology. 3. Repeat colonoscopy in 5 years. I want to thank Dr. Joni Cooper for this kind referral. Travis Avalos M.D. DR: Tressa JOB#: [id number] CC:
--- NOTE | 2020-03-16 13:30 | NUR ---
NURSE NOTES: Pt in stable condition. Provided diagnosis education, Rx and discharge instructions. Pt verbalized understanding. All belongings were accounted for. New prescribed medication were delivered by pharmacy. IV and ID band removed. Pt was escorted by nurse to downstair and picker / packer by son.
--- NOTE | 2020-03-16 14:18 | Surgery Progress Note ---
Surgery Progress Note Subjective Additional Comments scope today single polyp improved no n/v/f/c labs better plan d/c today Objective Last 24 Hour Vital Signs Date Time Temp Pulse Resp B/P (MAP) Pulse Ox O2 Delivery O2 Flow Rate FiO2 03/16/20 09:03 56 18 100 03/16/20 09:00 Room Air 03/16/20 08:36 68 18 100 03/16/20 07:39 97.8 56 23 131/80 100 Room Air 03/16/20 07:29 56 17 117/79 100 Nasal Cannula 3 03/16/20 07:24 57 23 111/74 100 Nasal Cannula 3 03/16/20 07:19 97.6 58 20 110/72 100 Nasal Cannula 3 03/16/20 04:00 97.5 52 18 126/73 (90) 99 03/16/20 00:00 98.0 58 18 130/71 (90) 99 03/15/20 21:00 Room Air 03/15/20 20:00 97.5 57 18 145/72 (96) 99 03/15/20 16:00 98.1 49 16 144/76 (98) 99 I&O Intake and Output 03/15/20 03/16/20 19:00 07:00 Intake Total 1065 ml Balance 1065 ml Intake Oral 240 ml IV Total 825 ml # Voids 5 3 Cardiovascular: RSR Respiratory: clear Abdomen: soft, non-tender, present bowel sounds Extremities: no edema, no tenderness, no cyanosis Laboratory Tests Test 03/16/20 05:35 White Blood Count 6.1 K/UL (4.8-10.8) Red Blood Count 4.21 M/UL (4.20-5.40) Hemoglobin 12.2 G/DL (12.0-16.0) Hematocrit 37.4 % (37.0-47.0) Mean Corpuscular Volume 89 FL (80-99) Mean Corpuscular Hemoglobin 29.1 PG (27.0-31.0) Mean Corpuscular Hemoglobin Concent 32.7 G/DL (32.0-36.0) Red Cell Distribution Width 12.1 % (11.6-14.8) Platelet Count 326 K/UL (150-450) Mean Platelet Volume 5.5 FL (6.5-10.1) L Neutrophils (%) (Auto) 61.7 % (45.0-75.0) Lymphocytes (%) (Auto) 22.6 % (20.0-45.0) Monocytes (%) (Auto) 11.1 % (1.0-10.0) H Eosinophils (%) (Auto) 3.2 % (0.0-3.0) H Basophils (%) (Auto) 1.5 % (0.0-2.0) Sodium Level 138 MMOL/L (136-145) Potassium Level 3.6 MMOL/L (3.5-5.1) Chloride Level 106 MMOL/L (98-107) Carbon Dioxide Level 26 MMOL/L (21-32) Anion Gap 7 mmol/L (5-15) Blood Urea Nitrogen 5 mg/dL (7-18) L Creatinine 0.9 MG/DL (0.55-1.30) Estimat Glomerular Filtration Rate > 60 mL/min (>60) Glucose Level 123 MG/DL (74-106) H Calcium Level 8.7 MG/DL (8.5-10.1) Plan Problems: (1) Colitis Assessment & Plan: 64-year-old female with 2 days abdominal pain nausea vomiting diarrhea. CT noted. Appendix identified without any inflammation. Does have colitis. On examination right lower quadrant pelvic and left lower quadrant all tender with right a little bit more pronounced. Likely diagnosis colitis potential appendicitis Okay for clear liquid diet trial Pain control Antibiotics We will follow serial abdominal examinations and recommendations thank you for let me participate in patient's care pain both right and left mid abd. based on CT consistent with colitis. atypical for appy and more consistent with colitis plan colonoscopy and egd as per GI scopte results noted d/c today late entry seen at 11am this AM (2) Uterine fibroid (3) Appendicitis Assessment & Plan: Liver is unremarkable. The gallbladder is normal. The spleen is unremarkable. Pancreas is normal. There is a small hiatal hernia. Adrenal glands are normal. The kidneys are unremarkable. There is some calcification of the aorta. Retroperitoneum is free of adenopathy. The colon is mostly collapsed making evaluation of the wall the colon difficult. It does appear somewhat indistinct throughout. The appendix is borderline in size but periappendiceal inflammatory changes are not present. There is some stranding in the retroperitoneum posterior to the colon bilaterally. Fluid-filled loops of mid small bowel are noted with some air-fluid levels. A minimal amount of free pelvic fluid is present. The uterus is mildly enlarged. Multiple masses are noted within the uterus. Calcifications are also noted within uterine body. Ovaries are not enlarged. Bladder is collapsed. Degenerative changes are noted in the spine. There is anterolisthesis, grade 1, of L5 on S1. Leoncio Castorena Mar 16, 2020 14:18
--- NOTE | 2020-03-17 09:52 | Discharge Summary ---
Discharge Summary Discharge Summary _ DATE OF ADMISSION: 03/12/2020 DATE OF DISCHARGE: 03/16/2020 DISCHARGED BY: Dr. Cooper REASON FOR ADMISSION: 64 years old female with past medical history of asthma, hypothyroidism, uterine fibroids, inguinal hernia, status post repair, two years ago, presented to emergency department with complaint of abdominal pain associated with nausea. Symptoms were present for the past 2 to 3 days. Pain was getting progressively worse ; initially was located in the right lower quadrant and now migrated to the upper abdominal area . Patient reported intermittent dizziness with nonbloody diarrhea for the past 2 days. She reported nonbloody nonbilious emesis. Patient was unable to hold down fluids. CT scan of the abdomen and pelvis revealed thickening of the colon with some retroperitoneal stranding bilateral, posterior to the colon, possible colitis was not excluded . CXR revealed possible calcified nodes in the pulmonary lucretia and aortopulmonary window. Laboratory work-up was significant for leukocytosis WBC 18.4 , stable hemoglobin and hematocrit. Potassium 3.4. Glucose 135. Total bilirubin 1.6 , direct bilirubin 0.2, stable AST, ALT and lipase. Troponin was negative. Urinalysis revealed +1 protein, +2 glucose, +2 ketones , +1 leukocyte esterase , no pyuria , and no bacteria. Urine toxicology screen was positive for marijuana. Serum alcohol level less than 3. Patient subsequently admitted for further management with abdominal pain with associated nausea vomiting and diarrhea , most likely secondary to colitis. CONSULTANTS: pulmonary Dr. Hall ID specialist Dr. Wells GI specialist Dr. [facility]val[facility]SE: Patient admitted and initially was kept n.p.o. Pain management was addressed. Antiemetic provided as needed. Patient started on empiric antibiotics. Surgeon seen and evaluated patient , and carefully reviewed CT scan. Appendix appeared to be borderline in size , but periappendiceal inflammatory changes were not present. Patient was followed -up with serial exams. Per surgeon, physical examination and findings on the CT were consistent with colitis. Patient subsequently undergone upper endoscopy with biopsy and colonoscopy with a biopsy , which revealed gastritis , status post biopsy, one colonic polyp, status post removal. One diverticula in the left colon. Internal and external hemorrhoids. Postprocedure diet was started and was slowly advanced as tolerated . Patient was able to tolerate diet. At the time of this dictation pathology results still pending. GI specialist recommended to follow-up with the pathology results. Stool cultures was negative. CEA within normal limits. Rapid HIV test was negative. Giardia antigen was negative. Isospora and microsporidia still pending. Patient remained afebrile, leukocytosis improved and resolved. Upon discharge patient was transitioned to oral antibiotics to complete a total 7-day course for possible enterocolitis. Hemoglobin and hematocrit were closely monitored, remained stable. Prior to discharge hemoglobin 12.2, hematocrit 37.4. Pain management was addressed DVT prophylaxis provided. Pulse oximetry remained stable on room air. Renal parameters and electrolytes were closely monitor ed, creatinine remained stable. Potassium replaced , and prior to discharge 3.6.. Patient clinically stabilized and was ready for discharge FINAL DIAGNOSES: Abdominal pain , associated with nausea vomiting and diarrhea Gastroenteritis Possible enterocolitis Hypokalemia Asthma Hypothyroidism Uterine fibroids DISCHARGE MEDICATIONS: See Medication Reconciliation list. DISCHARGE INSTRUCTIONS: Patient was discharged home. Follow-up primary care provider in 1 week. I have been assigned to dictate discharge summary for this account. I was not involved in the patient's management. Margie Quiros NP Mar 17, 2020 09:52
== END 2020-03-16 13:30 | disposition home or self-care (01) | DRG 392 ==
LOC: EDBD 13:51 → EMR 14:09 → 3E 16:35 → EDBEDREQ 17:25
DX: K52.9 Noninfective gastroenteritis and colitis, unspecified (principal); K63.5 Polyp of colon; K46.9 Unspecified abdominal hernia without obstruction or gangrene; D25.9 Leiomyoma of uterus, unspecified; E87.6 Hypokalemia; E03.9 Hypothyroidism, unspecified; M43.17 Spondylolisthesis, lumbosacral region; M51.36 Other intervertebral disc degeneration, lumbar region; J45.909 Unspecified asthma, uncomplicated; K57.90 Diverticulosis of intestine, part unspecified, without perforation or abscess without bleeding; M43.16 Spondylolisthesis, lumbar region; K29.70 Gastritis, unspecified, without bleeding; K64.4 Residual hemorrhoidal skin tags; K64.8 Other hemorrhoids; K37 Unspecified appendicitis
CPT/HCPCS: 36415; 71045; 74177; 80048; 80053; 80307; 81003; 82150; 82248; 82378; 83540; 83550; 83605; 83690; 83880; 84484; 85007; 85025; 85610; 85651; 85730; 86140; 86703; 87015; 87045; 87207; 87324; 87329; 87536; 93005; 94003; 94150; 96361; 96365; 96375; 96376; 99285; G0480; J2405; J2765; J7030; J8499; U0002